=== PATIENT | female | born 1940 | race Caucasian/White ===

== ENCOUNTER 2017-05-10 10:47 | Inpatient (IN) ==
[2017-05-10] MEDS ORDERED: 0.9 % Sodium Chloride 1,000 ML IVC ONE (10:52)
[2017-05-10] MEDS ORDERED: Ondansetron 4 MG/2 ML VIAL IVP ONE (10:52)
--- NOTE | 2017-05-10 10:58 | Emergency Department Note ---
Disposition Clinical Impression: Hyponatremia, UTI (urinary tract infection) Disposition: Admitted As Inpatient Condition: Fair Referrals: Dayton Cunningham DO [Primary Care Provider] - General Adult HPI - General Stated complaint: Abnormal labs Time Seen by Provider: 05/10/17 10:52 Nursing Notes Reviewed: Yes Vital Signs Reviewed: Yes - Related Data Home Medications Medication Instructions Recorded Confirmed Fluticasone Propionate Nasal 2 spray NS QAM 10/06/14 05/10/17 [Flonase] Sertraline HCl [Zoloft] 12.5 mg PO QAM 10/06/14 05/10/17 Pantoprazole Sodium [Protonix] 40 mg PO QAM 12/14/14 05/10/17 Furosemide [Lasix] 20 mg PO DAILY 02/23/16 05/10/17 carBAMazepine [CarBAMazepine] 15 ml PO BID 02/24/16 05/10/17 Aspirin [Lo-Dose Aspirin EC] 81 mg PO DAILY 05/10/17 05/10/17 Cholecalciferol (D-3) [Vitamin D] 1,000 unit PO BID 05/10/17 05/10/17 Previous Rx's Medication Instructions Recorded LevETIRAcetam [Keppra] 7.5 ml PO Q12H #500 ml 02/27/16 Allergies Allergy/AdvReac Type Severity Reaction Status Date / Time Iodinated Contrast- Oral and Allergy Severe Hypotension Verified 02/24/16 12:26 IV Dye dexamethasone AdvReac Mild Itching Verified 02/24/16 12:26 nitrofurantoin AdvReac Mild Itching Verified 02/24/16 12:26 Sulfa (Sulfonamide AdvReac Mild Itching Verified 02/24/16 12:26 Antibiotics) tobramycin AdvReac Mild Itching Verified 02/24/16 12:26 clarithromycin AdvReac Unknown Itching Verified 02/24/16 12:26 Past Medical History - Past Medical History Medical history: Reports: arthritis, atrial fibrillation, cancer, CHF, COPD, coronary artery disease, CVA, dementia, dialysis (History of temporary dialysis following episode of severe, acute kidney injury.), GERD, GI bleed, hyperlipidemia, hypertension, malignancy, myocardial infarction, osteoporosis, renal disease, seizures, SVT, thyroid disease, syncope, TIA, other Surgical history: Reports: angioplasty/stent, breast surgery, cancer surgery, pacemaker/AICD, thyroidectomy, other (Diagnostic hysteroscopy. D&C. Left heart catheterization. History of PEG tube placement and reversal. History of tracheostomy and reversal.), AICD, pacemaker Psychiatric history: Reports: anxiety, depression, other PLUMBING ASSEMBLER INSTALLER history: Reports: no PLUMBING ASSEMBLER INSTALLER history, non-contributory - Social History Smoking Status: Never smoker Smokeless Tobacco Status: No Alcohol use: Reports: none Drug use: Reports: none Course Vital Signs Temperature 97 F L 05/10/17 10:49 Pulse Rate 71 05/10/17 10:49 Respiratory Rate 18 05/10/17 10:49 Blood Pressure 138/78 05/10/17 10:49 O2 Sat by Pulse Oximetry 95 05/10/17 10:49 Temperature 97 F L 05/10/17 10:49 Pulse Rate 68 05/10/17 13:51 Respiratory Rate 16 05/10/17 13:51 Blood Pressure 149/89 05/10/17 13:51 O2 Sat by Pulse Oximetry 98 05/10/17 13:51 Oxygen Delivery Oxygen Delivery Room Air Medical Decision Making - MDM Narrative Medical decision making narrative: This documentation is done with the assistance of Dragon dictation. Despite efforts made to ensure accuracy, there may be inaccuracies in fourth officer or spelling and typographical errors. I examined this patient and my medical decision-making was reviewed with the Resident Physician. I agree with the documented findings, disposition and treatment plan as described except to the extent set forth below. Patient seen and evaluated on arrival with EMS by myself and Dr. Wynne, I agree with her evaluation management plan, supervise care the patient's stay. Patient's had a history of dementia is taking care of at home. Said some vomiting today. Patient had labs drawn yesterday and by her DrSamanthaand they called today to report a sodium was very low. We will try to look that up. She does have vomiting here. She is not verbally responsive which is apparently her baseline. No bedsores. Will order labs, workup, try to control her nausea and then reassess. She will most likely need admission. 1128 hrs.: Reviewed patient's old records. Her sodium was 128. Her sodium was also low last month, and is uncertain whether she had any therapies done at that time. Family is here and state this is her normal baseline. patient services coordinator speaking with them to see if they need any resources at home. We will continue workup. Improbable admission. Family is in agreement with plan. 1242 hrs.: Spoke with family and they are agree with her coming into the hospital they want her to remain a full code. So we will speak with hospitalist bring her into the hospital and family is in agreement with this plan. - Lab Data Result diagrams: 05/10/17 10:53 05/10/17 13:39 Lab Results 05/10/17 05/10/17 05/10/17 Range/Units 10:53 10:53 11:12 WBC 8.3 (4.3-11.1) K/mcL RBC 4.97 (3.82-4.97) M/mcL Hgb 15.3 (11.5-15.4) g/dL Hct 43.2 (35.3-44.9) % MCV 86.9 (83.0-100.0) fL MCH 30.8 (28.0-33.3) pg MCHC 35.4 (31.6-35.5) g/dL RDW 13.2 (11.5-14.5) % Plt Count 160 (140-400) K/mcL MPV 10.9 (9.4-12.4) fL Immature Gran % 1.7 (0-4) % Seg Neutrophils % 73.4 % Lymphocytes % 13.3 % Monocytes % 10.0 % Eosinophils % 1.1 % Basophils % 0.5 % Neutrophils # 6.1 (1.6-8.9) K/mcL Lymphocytes # 1.1 (0.6-4.6) K/mcL Monocytes # 0.8 (0.0-1.3) K/mcL Eosinophils # 0.1 (0.0-0.6) K/mcL Basophils # 0.0 (0.0-0.2) K/mcL Sodium 120 L* (136-145) mEq/L Potassium 4.4 (3.5-5.1) mEq/L Chloride 83 L (98-107) mEq/L Carbon Dioxide 27 (23-29) mEq/L BUN 11 (8-23) mg/dL Creatinine 0.72 (0.60-1.20) mg/dL Est GFR ( Amer) > 60 (> 60) Est GFR (Non-Af Amer) > 60 (> 60) BUN/Creatinine Ratio 15 (6-26) Glucose 101 (70-105) mg/dL Calculated Osmolality 250 L (280-300) Lactic Acid 1.6 (0.5-2.2) mmol/L Calcium 9.6 (8.6-10.3) mg/dL Total Bilirubin 0.5 (0.3-1.0) mg/dL AST 24 (13-39) Units/L ALT 20 (7-52) Units/L Alkaline Phosphatase 101 (34-104) Units/L Troponin I < 0.03 (< 0.04) ng/mL Serum Total Protein 7.0 (6.4-8.9) g/dL Albumin 4.5 (3.5-5.7) g/dL Globulin 2.5 (2.4-3.5) g/dL Albumin/Globulin Ratio 1.8 (1.1-2.2) Urine Color (Yellow) Urine Clarity (Clear) Urine pH (5.0-8.0) pH Units Ur Specific [place] (1.010-1.025) Urine Protein (Neg-Trace) mg/dL Urine Glucose (UA) (Normal) mg/dL Urine Ketones (Negative) mg/dL Urine Blood (Negative) Urine Nitrite (Negative) Urine Bilirubin (Negative) Urine Urobilinogen (Normal) mg/dL Ur Leukocyte Esterase (Negative) Urine Microscopic RBC (0-3) per hpf Urine Microscopic WBC (0-3) per hpf Ur Squamous Epith Cells (None-Few) per lpf Amorphous Sediment (Few) Urine Bacteria (None-Few) per hpf Hyaline Casts (None-Few) per lpf Ur Culture Indicated? (NO) Carbamazepine (4.0-12.0) mcg/mL 05/10/17 05/10/17 05/10/17 Range/Units 11:12 11:14 13:39 WBC (4.3-11.1) K/mcL RBC (3.82-4.97) M/mcL Hgb (11.5-15.4) g/dL Hct (35.3-44.9) % MCV (83.0-100.0) fL MCH (28.0-33.3) pg MCHC (31.6-35.5) g/dL RDW (11.5-14.5) % Plt Count (140-400) K/mcL MPV (9.4-12.4) fL Immature Gran % (0-4) % Seg Neutrophils % % Lymphocytes % % Monocytes % % Eosinophils % % Basophils % % Neutrophils # (1.6-8.9) K/mcL Lymphocytes # (0.6-4.6) K/mcL Monocytes # (0.0-1.3) K/mcL Eosinophils # (0.0-0.6) K/mcL Basophils # (0.0-0.2) K/mcL Sodium 122 L (136-145) mEq/L Potassium (3.5-5.1) mEq/L Chloride (98-107) mEq/L Carbon Dioxide (23-29) mEq/L BUN (8-23) mg/dL Creatinine (0.60-1.20) mg/dL Est GFR ( Amer) (> 60) Est GFR (Non-Af Amer) (> 60) BUN/Creatinine Ratio (6-26) Glucose (70-105) mg/dL Calculated Osmolality (280-300) Lactic Acid (0.5-2.2) mmol/L Calcium (8.6-10.3) mg/dL Total Bilirubin (0.3-1.0) mg/dL AST (13-39) Units/L ALT (7-52) Units/L Alkaline Phosphatase (34-104) Units/L Troponin I (< 0.04) ng/mL Serum Total Protein (6.4-8.9) g/dL Albumin (3.5-5.7) g/dL Globulin (2.4-3.5) g/dL Albumin/Globulin Ratio (1.1-2.2) Urine Color Yellow (Yellow) Urine Clarity Cloudy A (Clear) Urine pH 7.0 (5.0-8.0) pH Units Ur Specific [place] 1.014 (1.010-1.025) Urine Protein Negative (Neg-Trace) mg/dL Urine Glucose (UA) Normal (Normal) mg/dL Urine Ketones Negative (Negative) mg/dL Urine Blood Negative (Negative) Urine Nitrite Negative (Negative) Urine Bilirubin Negative (Negative) Urine Urobilinogen Normal (Normal) mg/dL Ur Leukocyte Esterase Moderate H (Negative) Urine Microscopic RBC 0-3 (0-3) per hpf Urine Microscopic WBC 5-15 H (0-3) per hpf Ur Squamous Epith Cells Moderate H (None-Few) per lpf Amorphous Sediment Moderate H (Few) Urine Bacteria Many H (None-Few) per hpf Hyaline Casts None Seen (None-Few) per lpf Ur Culture Indicated? YES A (NO) Carbamazepine 10.3 (4.0-12.0) mcg/mL
--- NOTE | 2017-05-10 11:09 | Emergency Department Note ---
Disposition Clinical Impression: Hyponatremia UTI (urinary tract infection) Qualifiers: Urinary tract infection type: site unspecified Hematuria presence: without hematuria Qualified Code(s): N39.0 - Urinary tract infection, site not specified Disposition: Admitted As Inpatient Condition: Fair Referrals: Dayton Cunningham DO [Primary Care Provider] - Time of Disposition: 13:40 General Adult HPI - General Stated complaint: Abnormal labs Time Seen by Provider: 05/10/17 10:52 Source: EMS Mode of arrival: EMS Limitations: altered mental status Nursing Notes Reviewed: Yes Vital Signs Reviewed: Yes - History of Present Illness HPI Narrative: Patient is a 77-year-old female who presents to [facility] ED with a chief complaint of low sodium level. The patient has a history of dementia and according to EMS, she is at her baseline mental status. Patient had persistent nausea with vomiting for her transport here. States she was being treated for a urinary tract infection with Bactrim. Patient is coming from home and is cared for by family members and home health. Patient had her lab work drawn yesterday evening and was called today with a critical low sodium. Per , patient is ambulatory with a lot of assistance. She is able to converse without difficulty. Onset (ago): unknown Improves with: nothing Worsens with: nothing Associated symptoms: Reports: nausea/vomiting. Denies: cough, fever/chills, shortness of breath Treatments Prior to Arrival: none - Related Data Home Medications Medication Instructions Recorded Confirmed Fluticasone Propionate Nasal 2 spray NS QA 10/06/14 05/10/17 [Flonase] Sertraline HCl [Zoloft] 12.5 mg PO QAM 10/06/14 05/10/17 Pantoprazole Sodium [Protonix] 40 mg PO QAM 12/14/14 05/10/17 Furosemide [Lasix] 20 mg PO DAILY 02/23/16 05/10/17 carBAMazepine [CarBAMazepine] 15 ml PO BID 02/24/16 05/10/17 Aspirin [Lo-Dose Aspirin EC] 81 mg PO DAILY 05/10/17 05/10/17 Cholecalciferol (D-3) [Vitamin D] 1,000 unit PO BID 05/10/17 05/10/17 Previous Rx's Medication Instructions Recorded LevETIRAcetam [Keppra] 7.5 ml PO Q12H #500 ml 02/27/16 Allergies Allergy/AdvReac Type Severity Reaction Status Date / Time Iodinated Contrast- Oral and Allergy Severe Hypotension Verified 02/24/16 12:26 IV Dye dexamethasone AdvReac Mild Itching Verified 02/24/16 12:26 nitrofurantoin AdvReac Mild Itching Verified 02/24/16 12:26 Sulfa (Sulfonamide AdvReac Mild Itching Verified 02/24/16 12:26 Antibiotics) tobramycin AdvReac Mild Itching Verified 02/24/16 12:26 clarithromycin AdvReac Unknown Itching Verified 02/24/16 12:26 All systems ED: reviewed and negative except as stated. Past Medical History - Past Medical History Attestation: Yes The following information was validated with the patient. Source: patient Medical history: Reports: arthritis, atrial fibrillation, cancer, CHF, COPD, coronary artery disease, CVA, dementia, dialysis (History of temporary dialysis following episode of severe, acute kidney injury.), GERD, GI bleed, hyperlipidemia, hypertension, malignancy, myocardial infarction, osteoporosis, renal disease, seizures, SVT, thyroid disease, syncope, TIA, other Surgical history: Reports: angioplasty/stent, breast surgery, cancer surgery, pacemaker/AICD, thyroidectomy, other (Diagnostic hysteroscopy. D&C. Left heart catheterization. History of PEG tube placement and reversal. History of tracheostomy and reversal.), AICD, pacemaker Psychiatric history: Reports: anxiety, depression, other SEAMLESS TUBE ROLLER history: Reports: no SEAMLESS TUBE ROLLER history, non-contributory - Social History Smoking Status: Never smoker Smokeless Tobacco Status: No Alcohol use: Reports: none Drug use: Reports: none Physical Exam - General Limitations: no limitations General appearance: obtunded - Head Head exam: atraumatic, normocephalic, normal inspection - Eye Eye exam: Present: normal appearance, PERRL, EOMI - ENT ENT exam: normal exam, normal oropharynx, mucous membranes moist - Neck Neck exam: Present: normal inspection, full ROM, trachea midline - Chest Chest inspection: Present: normal inspection, symmetric chest wall rise - Respiratory Respiratory exam: Present: normal lung sounds bilaterally - Cardiovascular Cardiovascular exam: Present: regular rate, normal rhythm, normal heart sounds - Abdominal Exam Abdominal exam: Present: soft, Non-Tender. Absent: tenderness, distention, guarding, rebound, rigidity - Extremities Exam Extremities exam: Present: normal inspection, full ROM. Absent: tenderness, pedal edema - Back Exam Back exam: Present: normal inspection, full ROM. Absent: tenderness - Neurological Exam Neurological exam: Present: alert - Psychiatric Psychiatric exam: Present: normal affect, normal mood - Skin Skin exam: Present: warm, dry, intact, normal color Course Course Narrative: Patient seen and examined. Patient with low sodium as well as nausea and vomiting. Patient is at baseline demented. Critical care workup initiated. No signs of fall or head trauma. denies any recent falls at home. - Reevaluation(s) Reevaluation #1: Lab work shows sodium level of 120. Otherwise unremarkable. We will start maintenance IV fluids at 100 mL per hour. We will admit for hyponatremia and urinary tract infection. 2 g of Rocephin ordered. Discussed with hospitalist who has accepted patient for admission. Time: 13:39 Vital Signs Temperature 97 F L 05/10/17 10:49 Pulse Rate 71 05/10/17 10:49 Respiratory Rate 18 05/10/17 10:49 Blood Pressure 138/78 05/10/17 10:49 O2 Sat by Pulse Oximetry 95 05/10/17 10:49 Temperature 97 F L 05/10/17 10:49 Pulse Rate 63 05/10/17 12:03 Respiratory Rate 15 05/10/17 12:03 Blood Pressure 138/78 05/10/17 12:03 O2 Sat by Pulse Oximetry 98 05/10/17 12:03 Oxygen Delivery Oxygen Delivery Room Air Medical Decision Making - Medical Records Medical records reviewed: Yes I reviewed the patient's medical records. - Lab Data Lab results reviewed: Yes I reviewed the patient's lab results. Result diagrams: 05/10/17 10:53 05/10/17 10:53 Lab Results 05/10/17 05/10/17 05/10/17 Range/Units 10:53 10:53 11:12 WBC 8.3 (4.3-11.1) K/mcL RBC 4.97 (3.82-4.97) M/mcL Hgb 15.3 (11.5-15.4) g/dL Hct 43.2 (35.3-44.9) % MCV 86.9 (83.0-100.0) fL MCH 30.8 (28.0-33.3) pg MCHC 35.4 (31.6-35.5) g/dL RDW 13.2 (11.5-14.5) % Plt Count 160 (140-400) K/mcL MPV 10.9 (9.4-12.4) fL Immature Gran % 1.7 (0-4) % Seg Neutrophils % 73.4 % Lymphocytes % 13.3 % Monocytes % 10.0 % Eosinophils % 1.1 % Basophils % 0.5 % Neutrophils # 6.1 (1.6-8.9) K/mcL Lymphocytes # 1.1 (0.6-4.6) K/mcL Monocytes # 0.8 (0.0-1.3) K/mcL Eosinophils # 0.1 (0.0-0.6) K/mcL Basophils # 0.0 (0.0-0.2) K/mcL Sodium 120 L* (136-145) mEq/L Potassium 4.4 (3.5-5.1) mEq/L Chloride 83 L (98-107) mEq/L Carbon Dioxide 27 (23-29) mEq/L BUN 11 (8-23) mg/dL Creatinine 0.72 (0.60-1.20) mg/dL Est GFR ( Amer) > 60 (> 60) Est GFR (Non-Af Amer) > 60 (> 60) BUN/Creatinine Ratio 15 (6-26) Glucose 101 (70-105) mg/dL Calculated Osmolality 250 L (280-300) Lactic Acid 1.6 (0.5-2.2) mmol/L Calcium 9.6 (8.6-10.3) mg/dL Total Bilirubin 0.5 (0.3-1.0) mg/dL AST 24 (13-39) Units/L ALT 20 (7-52) Units/L Alkaline Phosphatase 101 (34-104) Units/L Troponin I < 0.03 (< 0.04) ng/mL Serum Total Protein 7.0 (6.4-8.9) g/dL Albumin 4.5 (3.5-5.7) g/dL Globulin 2.5 (2.4-3.5) g/dL Albumin/Globulin Ratio 1.8 (1.1-2.2) Urine Color (Yellow) Urine Clarity (Clear) Urine pH (5.0-8.0) pH Units Ur Specific [place] (1.010-1.025) Urine Protein (Neg-Trace) mg/dL Urine Glucose (UA) (Normal) mg/dL Urine Ketones (Negative) mg/dL Urine Blood (Negative) Urine Nitrite (Negative) Urine Bilirubin (Negative) Urine Urobilinogen (Normal) mg/dL Ur Leukocyte Esterase (Negative) Urine Microscopic RBC (0-3) per hpf Urine Microscopic WBC (0-3) per hpf Ur Squamous Epith Cells (None-Few) per lpf Amorphous Sediment (Few) Urine Bacteria (None-Few) per hpf Hyaline Casts (None-Few) per lpf Ur Culture Indicated? (NO) Carbamazepine (4.0-12.0) mcg/mL 05/10/17 05/10/17 Range/Units 11:12 11:14 WBC (4.3-11.1) K/mcL RBC (3.82-4.97) M/mcL Hgb (11.5-15.4) g/dL Hct (35.3-44.9) % MCV (83.0-100.0) fL MCH (28.0-33.3) pg MCHC (31.6-35.5) g/dL RDW (11.5-14.5) % Plt Count (140-400) K/mcL MPV (9.4-12.4) fL Immature Gran % (0-4) % Seg Neutrophils % % Lymphocytes % % Monocytes % % Eosinophils % % Basophils % % Neutrophils # (1.6-8.9) K/mcL Lymphocytes # (0.6-4.6) K/mcL Monocytes # (0.0-1.3) K/mcL Eosinophils # (0.0-0.6) K/mcL Basophils # (0.0-0.2) K/mcL Sodium (136-145) mEq/L Potassium (3.5-5.1) mEq/L Chloride (98-107) mEq/L Carbon Dioxide (23-29) mEq/L BUN (8-23) mg/dL Creatinine (0.60-1.20) mg/dL Est GFR ( Amer) (> 60) Est GFR (Non-Af Amer) (> 60) BUN/Creatinine Ratio (6-26) Glucose (70-105) mg/dL Calculated Osmolality (280-300) Lactic Acid (0.5-2.2) mmol/L Calcium (8.6-10.3) mg/dL Total Bilirubin (0.3-1.0) mg/dL AST (13-39) Units/L ALT (7-52) Units/L Alkaline Phosphatase (34-104) Units/L Troponin I (< 0.04) ng/mL Serum Total Protein (6.4-8.9) g/dL Albumin (3.5-5.7) g/dL Globulin (2.4-3.5) g/dL Albumin/Globulin Ratio (1.1-2.2) Urine Color Yellow (Yellow) Urine Clarity Cloudy A (Clear) Urine pH 7.0 (5.0-8.0) pH Units Ur Specific [place] 1.014 (1.010-1.025) Urine Protein Negative (Neg-Trace) mg/dL Urine Glucose (UA) Normal (Normal) mg/dL Urine Ketones Negative (Negative) mg/dL Urine Blood Negative (Negative) Urine Nitrite Negative (Negative) Urine Bilirubin Negative (Negative) Urine Urobilinogen Normal (Normal) mg/dL Ur Leukocyte Esterase Moderate H (Negative) Urine Microscopic RBC 0-3 (0-3) per hpf Urine Microscopic WBC 5-15 H (0-3) per hpf Ur Squamous Epith Cells Moderate H (None-Few) per lpf Amorphous Sediment Moderate H (Few) Urine Bacteria Many H (None-Few) per hpf Hyaline Casts None Seen (None-Few) per lpf Ur Culture Indicated? YES A (NO) Carbamazepine 10.3 (4.0-12.0) mcg/mL - EKG Data EKG #1 EKG attestation: Yes I reviewed and interpreted this EKG. EKG results narrative: EKG done at 1119 shows normal sinus rhythm with a rate of [address] elevation or depression. Inverted T waves in leads 1 and aVL. Unchanged from prior EKG done 02/23/2016.
[2017-05-10 11:23] LABS: Bilirubin,Urine Negative (Negative); Blood,Urine Negative (Negative); Clarity,Urine Cloudy (Clear); Color,Urine Yellow (Yellow); Glucose,Urine (UA) Normal (Normal); Ketones,Urine Negative (Negative); Leukocyte Esterase,Urine Moderate (Negative); Nitrite,Urine Negative (Negative); Protein,Urine Negative (Neg-Trace); Specific Gravity,Urine 1.014 (1.010-1.025); Urobilinogen,Urine Normal (Normal)
[2017-05-10 11:24] LABS: Bacteria,Urine Many per hpf (None-Few); Hyaline Casts,Urine None Seen per lpf (None-Few); Squamous Epithelial Cell,Urine Moderate per lpf (None-Few)
[2017-05-10 11:29] LABS: Basophils % 0.5 %; Eosinophils # 0.1 K/mcL (0.0-0.6); Eosinophils % 1.1 %; Hematocrit 43.2 % (35.3-44.9); Hemoglobin 15.3 g/dL (11.5-15.4); Immature Granulocytes % 1.7 % (0-4); Lymphocytes # 1.1 K/mcL (0.6-4.6); Lymphocytes % 13.3 %; Mean Corpuscular HGB Conc 35.4 g/dL (31.6-35.5); Mean Corpuscular Hemoglobin 30.8 pg (28.0-33.3); Mean Corpuscular Volume 86.9 fL (83.0-100.0); Mean Platelet Volume 10.9 fL (9.4-12.4); Monocytes # 0.8 K/mcL (0.0-1.3); Neutrophils # 6.1 K/mcL (1.6-8.9); Platelet Count 160 K/mcL (140-400); Red Blood Count 4.97 M/mcL (3.82-4.97); Red Cell Distribution Width 13.2 % (11.5-14.5); Segmented Neutrophils % 73.4 %
[2017-05-10 11:42] LABS: RBC,Urine 0-3 per hpf (0-3)
[2017-05-10 11:44] LABS: Amorphous Sediment,Urine Moderate (Few)
[2017-05-10 11:46] LABS: Troponin I < 0.03 ng/mL (< 0.04)
[2017-05-10 11:50] LABS: Sodium 120 mEq/L (136-145)
[2017-05-10 12:04] LABS: Alanine Aminotransferase 20 Units/L (7-52); Albumin 4.5 g/dL (3.5-5.7); Albumin/Globulin Ratio 1.8 (1.1-2.2); Alkaline Phosphatase 101 Units/L (34-104); Aspartate Amino Transferase 24 Units/L (13-39); BUN/Creatinine Ratio 15 (6-26); Bilirubin,Total 0.5 mg/dL (0.3-1.0); Blood Urea Nitrogen 11 mg/dL (8-23); Calcium 9.6 mg/dL (8.6-10.3); Carbon Dioxide 27 mEq/L (23-29); Chloride 83 mEq/L (98-107); Globulin 2.5 g/dL (2.4-3.5); Glucose 101 mg/dL (70-105); Osmolality,Calculated 250 (280-300); Potassium 4.4 mEq/L (3.5-5.1); eGFR For African Americans > 60 (> 60); eGFR For Non-African Americans > 60 (> 60)
[2017-05-10] MEDS ORDERED: cefTRIAXone 2,000 MG in Water for inj. (sterile) 20 ML 20 ML IVP ONE (12:36)
[2017-05-10] MEDS ORDERED: 0.9 % Sodium Chloride 1,000 ML IVC SCH (13:15)
[2017-05-10] MEDS ORDERED: *HR* OxyCODONE Immed Rel 5 MG TABLET PO PRN (13:20)
[2017-05-10] MEDS ORDERED: Acetaminophen 325 MG TABLET PO PRN (13:20)
[2017-05-10] MEDS ORDERED: *HR* HYDROcodone/Acet 5/325 mg TABLET PO PRN (13:20)
[2017-05-10] MEDS ORDERED: Naloxone 0.4 MG/ML INJ IVP PRN (13:20)
[2017-05-10] MEDS ORDERED: levETIRAcetam 500 MG/5 ML UDC PO SCH (13:30)
--- NOTE | 2017-05-10 13:32 | Internal Med History&Physical ---
Date of Encounter: 05/10/17 Time of Encounter: 13:27 Assessment and Plan (1) Hyponatremia Current visit: Yes Status: Acute Acute metabolic encephalopathy likely exacerbated by hyponatremia and possible UTI Check urine sodium and urine osmolality, the patient does not appear dehydrated and most likely hyponatremia is due to increased fluid intake Carbamazepine can cause SIADH, consider ulnar medication to control seizures if it would be confirmed that carbamazepine will be the culprit *Fluid restriction, may adjust therapy accordingly after reviewing urine sodium and urine osmolality Check sodium every 4 hours, do not increase more than 0.5 mg once per hour or more than 8 tablets in 24 hours. Continue Rocephin, although the patient has history of ESBL in the remote past, consider switching antibiotic therapy if not improving, await final culture report Check chest x-ray Omeprazole for GI prophylaxis and subcutaneous heparin for DVT prophylaxis. The patient will be admitted as inpatient, expected to stay more than 2 midnights. Full code. Time spent on this admission 40 minutes (2) Acute metabolic encephalopathy Current visit: No Status: Acute (3) Seizure Current visit: No Status: Acute (4) Urinary tract infection Current visit: No Status: Acute Qualifiers: Urinary tract infection type: site unspecified Hematuria presence: without hematuria Qualified Code(s): N39.0 - Urinary tract infection, site not specified (5) CVA, old, cognitive deficits Current visit: No Status: Chronic Continue aspirin (6) Dementia Current visit: No Status: Chronic Qualifiers: Dementia type: unspecified type Dementia behavioral disturbance: without behavioral disturbance Qualified Code(s): F03.90 - Unspecified dementia without behavioral disturbance (7) Lung cancer Current visit: No Status: Chronic Qualifiers: Laterality: right Lung location: unspecified part of lung Qualified Code( s): C34.91 - Malignant neoplasm of unspecified part of right bronchus or lung (8) Sick sinus syndrome Current visit: No Status: Chronic (9) History of herpes encephalitis Current visit: No Status: Inactive Internal Medicine - H&P: HPI Chief complaint: AMS Admitted From: Emergency Dept History of present illness: Ms. Serrano is a 77 year old female with a past medical history of seizure disorders on, mirtazapine, C. difficile, UTI with ESBL, GI bleed, lung cancer in the breast mass, diastolic CHF, was brought by her family because yesterday she was told that her sodium was critically low at 120. The patient lives at home and has home health services, she has dementia and was recently treated for UTI with Bactrim. She took her last dose of Bactrim 4 days ago. Today the UA showed 15 white blood cells and many bacteria, she grew Escherichia coli with ESBL two years ago but the latest cultures have shown Proteus, Escherichia coli, Aerococcus. Na is 120 today. Her mentions that she has received lots of water and cranberry juice over the past few days to control the UTI. The patient does not appear dehydrated but she has not been acting normal. Is oriented in person at baseline. No fevers, no CXR has been done yet. Received rocephin at the ER. Past Med Surg Social Fam HX - Past Medical History Medical history: arthritis, atrial fibrillation (Paroxysmal A. fib on no anticoagulation due to prior GI bleed), cancer (Breast cancer and lung cancer), CHF (Diastolic), COPD (Not oxygen dependent), coronary artery disease, CVA, dementia, dialysis (History of temporary dialysis following episode of severe, acute kidney injury.), GERD, GI bleed, hyperlipidemia, hypertension, malignancy , myocardial infarction, osteoporosis, renal disease, seizures, SVT, thyroid disease, syncope, TIA, other (History of Escherichia coli ESBL, SVT, HSV encephalitis/meningitis, GI bleed) Psychiatric history: anxiety, depression, other - Past Surgical History Surgical History: angioplasty/stent, breast surgery, cancer surgery, pacemaker/ AICD, thyroidectomy, other (Diagnostic hysteroscopy. D&C. Left heart catheterization. History of PEG tube placement and reversal. History of tracheostomy and reversal.), AICD, pacemaker - Social History Smoking Status: Never smoker Smokeless Tobacco Status: No Alcohol use: none Drug use: none - Family History Mother Living Status: Hx Family Endocrine Disorder: Yes Father Living Status: Hx Family Cancer: Yes - Additional Family History Additional family history: Father with thyroid cancer, hypertension and heart disease, mother with diabetes and hypertension Internal Medicine - H&P: Meds Fluticasone Propionate Nasal [Flonase] 2 spray NS QAM 10/06/14 [History] Sertraline HCl [Zoloft] 12.5 mg PO QAM 10/06/14 [History] Pantoprazole Sodium [Protonix] 40 mg PO QAM 12/14/14 [History] Furosemide [Lasix] 20 mg PO DAILY 02/23/16 [History] carBAMazepine [CarBAMazepine] 15 ml PO BID 02/24/16 [History] LevETIRAcetam [Keppra] 7.5 ml PO Q12H #500 ml 02/27/16 [Rx] Aspirin [Lo-Dose Aspirin EC] 81 mg PO DAILY 05/10/17 [History] Cholecalciferol (D-3) [Vitamin D] 1,000 unit PO BID 05/10/17 [History] 3 Allergy/AdvReac Type Severity Reaction Status Date / Time Iodinated Contrast- Oral and Allergy Severe Hypotension Verified 02/24/16 12:26 IV Dye dexamethasone AdvReac Mild Itching Verified 02/24/16 12:26 nitrofurantoin AdvReac Mild Itching Verified 02/24/16 12:26 Sulfa (Sulfonamide AdvReac Mild Itching Verified 02/24/16 12:26 Antibiotics) tobramycin AdvReac Mild Itching Verified 02/24/16 12:26 clarithromycin AdvReac Unknown Itching Verified 02/24/16 12:26 All Systems PM: A 10-system review of systems was performed and is negative for pertinent findings except as documented above in the HPI. Review of systems: Unable to be completed due to the patient status - Constitutional Vitals: Temp Pulse Resp BP Pulse Ox 97 F L 63 15 138/78 98 05/10/17 10:49 05/10/17 12:03 05/10/17 12:03 05/10/17 12:03 05/10/17 12:03 General appearance: Present: A&O X 1 - Head Head exam: Present: atraumatic, normocephalic - Eye Eye exam: Present: PERRL, conjuntiva pink, sclera anicteric Pupils: Present: PERRL - Neck Neck exam general surgery: Present: supple, trachea midline. Absent: lymphadenopathy - Respiratory Respiratory exam: Present: CTAB. Absent: accessory muscle use, rales, rhonchi, wheezes - Cardiovascular Cardiovascular exam: Present: RRR, +S1, +S2. Absent: diastolic murmur, gallop, rubs, systolic murmur - GI/Abdominal GI/Abdominal exam: Present: normal bowel sounds, soft, no peritoneal signs. Absent: distended, tenderness - Extremities Exam Extremities exam: Present: warm, radial pulses palpable and symmetrical. Absent : calf tenderness, cyanotic, pedal edema - Neurological Exam Neurological exam: Present: CN II-XII intact, no focal deficits. Absent: oriented X3, pronater drift, facial droop, speech deficit - Skin Skin exam: Present: dry, intact Internal Med - H&P Results - Labs CBC & Chem 7: 05/10/17 10:53 05/10/17 10:53 Labs: Short CBC 05/10/17 Range/Units 10:53 WBC 8.3 (4.3-11.1) K/mcL Hgb 15.3 (11.5-15.4) g/dL Hct 43.2 (35.3-44.9) % Plt Count 160 (140-400) K/mcL Neutrophils # 6.1 (1.6-8.9) K/mcL BMP 05/10/17 10:53 Sodium 120 L* Potassium 4.4 Chloride 83 L Carbon Dioxide 27 BUN 11 Creatinine 0.72 Glucose 101 Calcium 9.6 Cardiac Enzymes 05/10/17 Range/Units 10:53 Troponin I < 0.03 (< 0.04) ng/mL Liver Function 05/10/17 Range/Units 10:53 Total Bilirubin 0.5 (0.3-1.0) mg/dL AST 24 (13-39) Units/L ALT 20 (7-52) Units/L Alkaline Phosphatase 101 (34-104) Units/L Albumin 4.5 (3.5-5.7) g/dL Urine 05/10/17 Range/Units 11:14 Urine Color Yellow (Yellow) Urine Clarity Cloudy A (Clear) Urine pH 7.0 (5.0-8.0) pH Units Ur Specific Agness 1.014 (1.010-1.025) Urine Protein Negative (Neg-Trace) mg/dL Urine Glucose (UA) Normal (Normal) mg/dL
--- NOTE | 2017-05-10 17:11 | Electrocardiograph Report ---
[facility] Test Date: 2017-05-10 Pat Name: Geeta Serrano Department: 103 Room: 2A31 Gender: F Line Tester: RINA : 1940 Requested By: Raman Lockett Order Number: [id number] Reading MD: Vadim Head MD Measurements Intervals Madelia Rate: 64 P: 60 VT: 177 QRS: -7 QRSD: 105 T: 121 QT: 404 QTc: 413 Interpretive Statements SINUS RHYTHM ST DEVIATION AND MODERATE T-WAVE ABNORMALITY, CONSIDER ANTEROLATERAL ISCHEMIA [- 0.1+ mV T WAVE IN V3-V6] INTERPRETATION BASED ON A DEFAULT AGE OF 40 YEARS Electronically Signed On 05-10-2017 17:10:11 EST by Vadim Head MD
[2017-05-10] MEDS: *HR* Heparin 5,000 UNIT/ML VIAL SQ SCH (17:34)
[2017-05-10] MEDS: levETIRAcetam 500 MG/5 ML UDC PO SCH (17:53)
[2017-05-11] MEDS: *HR* Heparin 5,000 UNIT/ML VIAL SQ SCH ×3 (00:13→18:18)
[2017-05-11] MEDS: levETIRAcetam 500 MG/5 ML UDC PO SCH ×2 (04:49→18:16)
[2017-05-11 05:14] LABS: Hematocrit 38.8 % (35.3-44.9); Mean Corpuscular HGB Conc 34.8 g/dL (31.6-35.5); Mean Corpuscular Hemoglobin 30.9 pg (28.0-33.3); Mean Corpuscular Volume 88.8 fL (83.0-100.0); Platelet Count 154 K/mcL (140-400); Red Blood Count 4.37 M/mcL (3.82-4.97); Red Cell Distribution Width 13.2 % (11.5-14.5)
[2017-05-11 05:16] LABS: Hemoglobin 13.5 g/dL (11.5-15.4)
[2017-05-11 05:31] LABS: BUN/Creatinine Ratio 12 (6-26); Blood Urea Nitrogen 9 mg/dL (8-23); Calcium 8.6 mg/dL (8.6-10.3); Carbon Dioxide 27 mEq/L (23-29); Chloride 96 mEq/L (98-107); Glucose 105 mg/dL (70-105); Osmolality,Calculated 267 (280-300); Potassium 4.1 mEq/L (3.5-5.1); Sodium 129 mEq/L (136-145); eGFR For African Americans > 60 (> 60); eGFR For Non-African Americans > 60 (> 60)
[2017-05-11] MEDS: cefTRIAXone 1,000 MG in Water for inj. (sterile) 20 ML 10 ML IVP SCH (08:57)
[2017-05-11] MEDS: Aspirin Enteric Coated 81 MG Tablet PO SCH (09:03)
--- NOTE | 2017-05-11 14:11 | Internal Med Progress Note ---
<Juan Bueno - Last Filed: 05/11/17 17:20> Date of Encounter: 05/11/17 Time of Encounter: 14:07 - Assessment and plan (1) Acute metabolic encephalopathy Current Visit: Yes Status: Acute Assessment and plan: Secondary to exacerbation by hyponatremia versus possibly UTI Consider discharge tomorrow pending urine culture (2) Hyponatremia Current Visit: Yes Status: Acute Assessment and plan: Urine sodium and urine osmolality suggests that the cause is either increase fluid intake or related to thyroid versus corticosteroid insufficiency. Current patient's , the patient was diagnosed with UTI and treated with Bactrim which was completed 4 days ago and she had home health aides have encouraged her to drink plenty of fluids and she may drink too much. Fluid restriction appears to be improving the patient's sodium. Most recent sodium was 129. Plan: - TSH ordered - Continue fluid restriction - Continue to monitor I's and O's (3) Urinary tract infection Current Visit: Yes Status: Acute Assessment and plan: Urine was indicative of possible UTI infection. Plan: - Day 2 of Rocephin - Cultures pending Qualifiers: Urinary tract infection type: site unspecified Hematuria presence: without hematuria Qualified Code(s): N39.0 - Urinary tract infection, site not specified (4) DVT prophylaxis Current Visit: No Status: Acute Assessment and plan: Heparin 5000 units SQ Q8H - Subjective Interval history: Patient is a 77-year-old female with a past medical history of A. fib, CHF, COPD , CAD, CVA, MEGAN requiring dialysis, UTI with ESBL, seizures, SVT, dementia and AICD admitted yesterday through the emergency department for urinary tract infection and hyponatremia. CBC was unremarkable patients metabolic panel showed a sodium of 128, kidney function was normal and UA showed positive leukocyte Estrace with many bacteria and moderate squamous epithelial cells. The patient came from the home in which she lives with her family and is seen by home health. She did have nausea and vomiting on her transport here and she was being treated with Bactrim for UTI prior to arrival. Started on Rocephin in the ED. - Constitutional Vitals: Temp Pulse Resp BP Pulse Ox 98.2 F 75 16 122/75 94 05/11/17 11:55 05/11/17 11:55 05/11/17 11:55 05/11/17 11:55 05/11/17 11:55 General appearance: Present: A&O X 1, A&O X 2, pleasant, no acute distress Exam: Patient is sent over and resting in bed. She is easily arousable. Upon waking up the patient answers my questions appropriately. - Head Head exam: Present: atraumatic, normal inspection, normocephalic - Eye Eye exam: Present: normal appearance, PERRL - Neck Neck exam general surgery: Present: normal inspection - Respiratory Respiratory exam: Present: CTAB. Absent: respiratory distress, rhonchi, stridor , wheezes - Cardiovascular Cardiovascular exam: Present: RRR, +S1, +S2 - GI/Abdominal GI/Abdominal exam: Present: normal bowel sounds, soft, no peritoneal signs. Absent: tenderness - Extremities Exam Extremities exam: Present: normal inspection, warm. Absent: tenderness - Back Exam Back exam: Present: normal inspection - Neurological Exam Neurological exam: Present: alert, no focal deficits - Psychiatric Psychiatric exam: Present: normal affect, normal mood - Skin Skin exam: Present: intact, rash, warm Internal Medicine: Result - Labs CBC & Chem 7: 05/11/17 04:00 05/11/17 04:00 Labs: Short CBC 05/11/17 Range/Units 04:00 WBC 9.2 (4.3-11.1) K/mcL Hgb 13.5 D (11.5-15.4) g/dL Hct 38.8 (35.3-44.9) % Plt Count 154 (140-400) K/mcL BMP 05/10/17 05/10/17 05/11/17 17:03 21:16 01:16 Sodium 129 L 128 L 128 L Potassium Chloride Carbon Dioxide BUN Creatinine Glucose Calcium 05/11/17 04:00 Sodium 129 L Potassium 4.1 Chloride 96 L Carbon Dioxide 27 BUN 9 Creatinine 0.77 Glucose 105 Calcium 8.6 Consult Discharge Plan - Plan Referrals: Dayton Cunningham DO [Primary Care Provider] - <Jaylen Mojica - Last Filed: 05/11/17 17:39> Date of Encounter: 05/11/17 - Constitutional Vitals: Temp Pulse Resp BP Pulse Ox 98.8 F 70 20 144/77 94 05/11/17 15:57 05/11/17 15:57 05/11/17 15:57 05/11/17 15:57 05/11/17 15:57 Internal Medicine: Result - Labs CBC & Chem 7: 05/11/17 04:00 05/11/17 04:00 Labs: Short CBC 05/11/17 Range/Units 04:00 WBC 9.2 (4.3-11.1) K/mcL Hgb 13.5 D (11.5-15.4) g/dL Hct 38.8 (35.3-44.9) % Plt Count 154 (140-400) K/mcL BMP 05/10/17 05/10/17 05/11/17 17:03 21:16 01:16 Sodium 129 L 128 L 128 L Potassium Chloride Carbon Dioxide BUN Creatinine Glucose Calcium 05/11/17 04:00 Sodium 129 L Potassium 4.1 Chloride 96 L Carbon Dioxide 27 BUN 9 Creatinine 0.77 Glucose 105 Calcium 8.6 - Attending Attestation I examined this patient and my medical decision-making was reviewed with the Resident Physician. I agree with the documented findings, disposition and treatment plan as described except to the extent set forth below.
[2017-05-12] MEDS: *HR* Heparin 5,000 UNIT/ML VIAL SQ SCH ×2 (00:15→09:25)
[2017-05-12 04:45] LABS: BUN/Creatinine Ratio 14 (6-26); Blood Urea Nitrogen 11 mg/dL (8-23); Calcium 8.4 mg/dL (8.6-10.3); Carbon Dioxide 25 mEq/L (23-29); Chloride 97 mEq/L (98-107); Glucose 101 mg/dL (70-105); Osmolality,Calculated 270 (280-300); Potassium 3.7 mEq/L (3.5-5.1); Sodium 130 mEq/L (136-145); eGFR For African Americans > 60 (> 60); eGFR For Non-African Americans > 60 (> 60)
[2017-05-12] MEDS: levETIRAcetam 500 MG/5 ML UDC PO SCH (05:19)
--- NOTE | 2017-05-12 09:03 | Discharge Summary ---
<Juan Bueno - Last Filed: 05/12/17 10:39> - NOTES TO OUTPATIENT PROVIDER Notes to Outpatient Provider: Patient is to complete 4 additional days of Levaquin upon discharge which will complete a 7 day course. Cultures and sensitivities were performed and the antibiotic is adequate. Patient also cautioned on fluid restrictions. Date of Encounter: 05/12/17 Time of Encounter: 10:39 - Discharge Diagnosis (1) Urinary tract infection Priority: Primary Status: Acute Qualifiers: Urinary tract infection type: site unspecified Hematuria presence: without hematuria Qualified Code(s): N39.0 - Urinary tract infection, site not specified (2) Hyponatremia Priority: Primary Status: Acute (3) Acute metabolic encephalopathy Priority: Primary Status: Acute (4) DVT prophylaxis Priority: Secondary Status: Acute Hospital course: Ms. Serrano is a 77-year-old female with a past medical history of A. fib, CHF, COPD, CAD, CVA, MEGAN requiring dialysis, UTI with ESBL, seizures, SVT, dementia and AICD admitted on 05/10/17 through the emergency department for a critical lab value with sodium of 120 and also concerns for urinary tract infection. 4 days prior to admission the patient was being treated for a UTI outpatient which she received a full course of Bactrim. According to the patient's the patient has been more tired than usual and taking in more fluids than usual. Throughout her stay in the hospital the patient was placed on fluid restrictions and her sodium improved. She is also treated for 3 days worth of antibiotics for urinary tract infection. Her culture grew back Proteus mirabilis with sensitivities to the chosen antibiotics. The patient will be discharged home today with a prescription for 4 more days of Levaquin which is to be started tomorrow. This is to be taken until completion. The patient will need to follow up with her primary care physician Dr. Cunningham in 3-5 days. Discussed with patient and patient's be cautious with fluid intake. Discharge discussed with: patient Time spent discussing smoking cessation with patient: 3 to 10 minutes - Time Spent with Patient Total time spent providing and/or coordinating discharge services: - Discharge Medications Prescriptions: Levofloxacin [Levaquin] 750 mg PO DAILY 4 Days #4 tablet Home Medications: Fluticasone Propionate Nasal [Flonase] 2 spray NS QAM 10/06/14 [History] Sertraline HCl [Zoloft] 12.5 mg PO QAM 10/06/14 [History] Pantoprazole Sodium [Protonix] 40 mg PO QAM 12/14/14 [History] Furosemide [Lasix] 20 mg PO DAILY 02/23/16 [History] carBAMazepine [CarBAMazepine] 15 ml PO BID 02/24/16 [History] LevETIRAcetam [Keppra] 7.5 ml PO Q12H #500 ml 02/27/16 [Rx] Aspirin [Lo-Dose Aspirin EC] 81 mg PO DAILY 05/10/17 [History] Cholecalciferol (D-3) [Vitamin D] 1,000 unit PO BID 05/10/17 [History] Levofloxacin [Levaquin] 750 mg PO DAILY 4 Days #4 tablet 05/12/17 [Rx] Allergies/Adverse Reactions: 3 Allergy/AdvReac Type Severity Reaction Status Date / Time Iodinated Contrast- Oral and Allergy Severe Hypotension Verified 02/24/16 12:26 IV Dye dexamethasone AdvReac Mild Itching Verified 02/24/16 12:26 nitrofurantoin AdvReac Mild Itching Verified 02/24/16 12:26 Sulfa (Sulfonamide AdvReac Mild Itching Verified 02/24/16 12:26 Antibiotics) tobramycin AdvReac Mild Itching Verified 02/24/16 12:26 clarithromycin AdvReac Unknown Itching Verified 02/24/16 12:26 Date of admission: 05/10/17 16:28 Primary care physician: Dayton Cunningham DO Discharging clinician: Jaylen Mojica Anticipated date of discharge: 05/12/17 - Constitutional Vitals: Temp Pulse Resp BP Pulse Ox 98.5 F 71 13 109/73 94 05/12/17 08:46 05/12/17 08:46 05/12/17 08:46 05/12/17 08:46 05/12/17 08:46 General appearance: Present: A&O X 2, pleasant, no acute distress Exam: Patient is at baseline according to . He states she sleeps a few hours after morning medications and is most alert in the afternoon. - Head Head exam: Present: atraumatic, normal inspection, normocephalic - Eye Eye exam: Present: normal appearance, PERRL - Neck Neck exam general surgery: Present: normal inspection - Respiratory Respiratory exam: Present: CTAB. Absent: respiratory distress, rhonchi, wheezes , tachypnea - Cardiovascular Cardiovascular exam: Present: RRR, +S1, +S2 - GI/Abdominal GI/Abdominal exam: Present: normal bowel sounds, soft, no peritoneal signs. Absent: tenderness - Extremities Exam Extremities exam: Present: warm. Absent: tenderness - Back Exam Back exam: Present: normal inspection - Neurological Exam Neurological exam: Present: no focal deficits Additional comments: Patient is resting. She awakens for questions. - Psychiatric Psychiatric exam: Present: normal affect, normal mood - Skin Skin exam: Present: intact, normal color, warm - Patient Status Disposition: Home, Self-Care Condition: Fair Functional capacity at discharge: wheelchair bound Overall status at discharge: patient is progressing back to baseline - Discharge Instructions Follow Up With: Dayton Cunningham DO [Primary Care Provider] - Forms: ED Satisfaction Letter Additional Instructions: 1. Take your antibiotic as prescribed, Levaquin 750 mg 1 time a day for the next 4 days. 2. Call your primary care provider's office, Dr. Cunningham, and schedule appointment for the next 3-5 days. 3. If at any time you experience any worsening or concerning symptoms such as headache, nausea, vomiting, chest pain, shortness of breath, abdominal pain, burning with urination, change in the urgency or frequency of urination, or any other concerning symptoms return to the nearest emergency department for further evaluation and treatment. - Diet and Activity Activity: increase activity as tolerated Diet: advance to your usual diet <Jaylen Mojica - Last Filed: 05/12/17 18:33> Date of Encounter: 05/12/17 Hospital course: Ms. Serrano is a 77 year old female - Time Spent with Patient Total time spent providing and/or coordinating discharge services: Date of admission: 05/10/17 16:28 Primary care physician: Dayton Cunnignham DO - Constitutional Vitals: Temp Pulse Resp BP Pulse Ox 98.6 F 74 12 112/72 92 05/12/17 12:38 05/12/17 12:38 05/12/17 12:38 05/12/17 12:38 05/12/17 12:38 - Attending Attestation I examined this patient and my medical decision-making was reviewed with the Resident Physician. I agree with the documented findings, disposition and treatment plan as described except to the extent set forth below.
[2017-05-12] MEDS: cefTRIAXone 1,000 MG in Water for inj. (sterile) 20 ML 10 ML IVP SCH (09:26)
[2017-05-12] MEDS: Aspirin Enteric Coated 81 MG Tablet PO SCH (09:27)
[2017-05-12 12:59] VITALS: BP 112/72
--- NOTE | 2017-05-12 14:25 | Physician Discharge Referral ---
<Juan Bueno Golden - Last Filed: 05/12/17 14:23> Home Health/Hosp Referral Info Transfer to: Home Health Attending Provider: Simi Mojica Provider in Charge Post Discharge: PCP - Diagnosis (1) Urinary tract infection Priority: Primary Status: Acute (2) Hyponatremia Priority: Primary Status: Acute (3) Acute metabolic encephalopathy Priority: Primary Status: Acute (4) DVT prophylaxis Priority: Secondary Status: Acute - Respiratory Orders None Smoking Cessation: Smoking cessation has been advised. For more information, call the [place] [employer] Quit Line at 1-341-KBVF-NOW. - Diet/Nutrition Diet/Nutrition Orders: Cardiac - Activity Activity Orders: Up ad stefania, Chair - Services Needed Following services are medically necessary services: Nursing, Home Health Aide, Physical Therapy, Occupational Therapy - Transfer Medications Prescriptions: Levofloxacin [Levaquin] 750 mg PO DAILY 4 Days #4 tablet Home Medications: Fluticasone Propionate Nasal [Flonase] 2 spray NS QAM 10/06/14 [History] Sertraline HCl [Zoloft] 12.5 mg PO QAM 10/06/14 [History] Pantoprazole Sodium [Protonix] 40 mg PO QAM 12/14/14 [History] Furosemide [Lasix] 20 mg PO DAILY 02/23/16 [History] carBAMazepine [CarBAMazepine] 15 ml PO BID 02/24/16 [History] LevETIRAcetam [Keppra] 7.5 ml PO Q12H #500 ml 02/27/16 [Rx] Aspirin [Lo-Dose Aspirin EC] 81 mg PO DAILY 05/10/17 [History] Cholecalciferol (D-3) [Vitamin D] 1,000 unit PO BID 05/10/17 [History] Levofloxacin [Levaquin] 750 mg PO DAILY 4 Days #4 tablet 05/12/17 [Rx] Allergies/Adverse Reactions: 3 Allergy/AdvReac Type Severity Reaction Status Date / Time Iodinated Contrast- Oral and Allergy Severe Hypotension Verified 02/24/16 12:26 IV Dye dexamethasone AdvReac Mild Itching Verified 02/24/16 12:26 nitrofurantoin AdvReac Mild Itching Verified 02/24/16 12:26 Sulfa (Sulfonamide AdvReac Mild Itching Verified 02/24/16 12:26 Antibiotics) tobramycin AdvReac Mild Itching Verified 02/24/16 12:26 clarithromycin AdvReac Unknown Itching Verified 02/24/16 12:26 Certification: Further, I certify that my clinical findings support that this patient is homebound (i.e. absences from home require considerable and taxing effort and are for medical reasons or buddhism services or infrequently or short duration when for other reasons) because: Homebound Reason: Patient requires assistance of a person or device to safely leave home Attestation: My signature below is to certify that this patient is under my care and that I, or nurse practitioner, or a physician's assistant site manager working with me, has a face-to -face encounter with this patient. <Jaylen Mojica - Last Filed: 05/12/17 18:36> - Respiratory Orders Smoking Cessation: Smoking cessation has been advised. For more information, call the [place] [employer] Quit Line at 5-372-REDZ-NOW. Certification: Further, I certify that my clinical findings support that this patient is homebound (i.e. absences from home require considerable and taxing effort and are for medical reasons or buddhism services or infrequently or short duration when for other reasons) because: Attestation: My signature below is to certify that this patient is under my care and that I, or nurse practitioner, or a physician's assistant site manager working with me, has a face-to -face encounter with this patient. - Attending Attestation I examined this patient and my medical decision-making was reviewed with the Resident Physician. I agree with the documented findings, disposition and treatment plan as described except to the extent set forth below.
== END 2017-05-12 15:35 | disposition home or self-care (01) | DRG 426 ==
LOC: EMEROO 10:47 → 2ANU 10:47
PROVIDERS: ADMIT Internal Medicine; ATTEND Internal Medicine

== ENCOUNTER 2018-05-29 17:58 | Observation (INO) ==
--- NOTE | 2018-05-29 18:15 | Emergency Department Note ---
Disposition Clinical Impression: Elevated troponin UTI (urinary tract infection) Qualifiers: Urinary tract infection type: site unspecified Hematuria presence: without hematuria Qualified Code(s): N39.0 - Urinary tract infection, site not specified Altered mental status Qualifiers: Altered mental status type: unspecified Qualified Code(s): R41.82 - Altered mental status, unspecified Dementia Qualifiers: Dementia type: unspecified type Dementia behavioral disturbance: without behavioral disturbance Qualified Code(s): F03.90 - Unspecified dementia without behavioral disturbance Disposition: Admitted As Inpatient Condition: Fair Referrals: NONE,PCP [Primary Care Provider] - Time of Disposition: 22:06 General Adult HPI - General Stated complaint: General illness Source: EMS Mode of arrival: EMS Limitations: altered mental status Nursing Notes Reviewed: Yes Vital Signs Reviewed: Yes - History of Present Illness HPI Narrative: 78 yo female with PMHx of dementia is transported via EMS from home for "unresponsiveness." Pt's family states they could not wake her up and so they called EMS. They checked her blood sugar at home and reported to be 160, repeat blood sugar check. EMS was 1:15. The patient was awake and alert once EMS got there and has been awake and alert since then. Patient has severe dementia and is unable to answer any questions. - Related Data Home Medications Medication Instructions Recorded Confirmed Sertraline HCl [Zoloft] 12.5 mg PO QAM 10/06/14 11/13/17 Pantoprazole Sodium [Protonix] 40 mg PO QAM 12/14/14 11/13/17 Furosemide [Lasix] 20 mg PO DAILY 02/23/16 11/13/17 carBAMazepine [CarBAMazepine] 15 ml PO BID 02/24/16 11/13/17 Aspirin [Lo-Dose Aspirin EC] 81 mg PO DAILY 05/10/17 11/13/17 Cholecalciferol (D-3) [Vitamin D] 1,000 unit PO BID 05/10/17 11/13/17 Atorvastatin [Lipitor] 10 mg PO HS 05/29/18 05/29/18 Previous Rx's Medication Instructions Recorded LevETIRAcetam [Keppra] 7.5 ml PO Q12H #500 ml 02/27/16 Allergies Allergy/AdvReac Type Severity Reaction Status Date / Time Iodinated Contrast- Oral and Allergy Severe Hypotension Verified 11/13/17 15:08 IV Dye dexamethasone AdvReac Mild Itching Verified 11/13/17 15:08 nitrofurantoin AdvReac Mild Itching Verified 11/13/17 15:08 Sulfa (Sulfonamide AdvReac Mild Itching Verified 11/13/17 15:08 Antibiotics) tobramycin AdvReac Mild Itching Verified 11/13/17 15:08 clarithromycin AdvReac Unknown Itching Verified 11/13/17 15:08 Limitations: ROS unobtainable due to patients medical condition Past Medical History - Past Medical History Source: old records reviewed Medical history: Reports: arthritis, atrial fibrillation, cancer, CHF, COPD, coronary artery disease, CVA, dementia, dialysis, GERD, GI bleed, hyperlipidemia, hypertension, malignancy, myocardial infarction, osteoporosis, renal disease, seizures, SVT, thyroid disease, syncope, TIA, other Surgical history: Reports: angioplasty/stent, breast surgery, cancer surgery, pacemaker/AICD, thyroidectomy, other, AICD, pacemaker Psychiatric history: Reports: anxiety, depression, other AUTOMATION SPECIALIST history: Reports: no AUTOMATION SPECIALIST history, non-contributory - Social History Smoking Status: Never smoker Smokeless Tobacco Status: No Alcohol use: Reports: none Drug use: Reports: none Physical Exam - General Limitations: altered mental status General appearance: alert, in no apparent distress - Head Head exam: atraumatic, normocephalic - Eye Eye exam: Present: normal appearance, PERRL, EOMI - Neck Neck exam: Present: normal inspection. Absent: tenderness - Chest Chest inspection: Present: normal inspection. Absent: tenderness - Respiratory Respiratory exam: Present: normal lung sounds bilaterally - Cardiovascular Cardiovascular exam: Present: regular rate, normal rhythm - Abdominal Exam Abdominal exam: Present: soft, Non-Tender. Absent: distention, guarding, re bound, rigidity - Extremities Exam Extremities exam: Present: other (Area of ecchymosis on the patient's right ankle and top of foot with associated edema). Absent: tenderness - Neurological Exam Neurological exam: Present: alert. Absent: oriented X3 - Skin Skin exam: Present: warm, dry, intact Course Vital Signs Temperature 98.3 F 05/29/18 18:12 Pulse Rate 69 05/29/18 18:12 Respiratory Rate 16 05/29/18 18:12 Blood Pressure 162/75 05/29/18 18:12 O2 Sat by Pulse Oximetry 99 05/29/18 18:12 Temperature 98.3 F 05/29/18 18:12 Pulse Rate 69 05/29/18 18:12 Respiratory Rate 16 05/29/18 18:12 Blood Pressure 162/75 05/29/18 18:12 O2 Sat by Pulse Oximetry 99 05/29/18 18:12 Oxygen Delivery Oxygen Delivery Room Air Medical Decision Making - MDM Narrative Medical decision making narrative: Patient presents with altered mental status from home but has a baseline of dementia. We will obtain screening labs, urinalysis, head CT, chest x-ray, EKG and troponin to assess the patient's altered mental status. 194patient does have an elevation of troponin of 0.04 that is new. Patient also has signs of urinary tract infection on her urinalysis. Chest x-ray is unremarkable. Right foot x-ray shows signs of possible retained foreign body. Awaiting head CT. We will obtain a lactic acid and blood cultures, and start the patient on Rocephin for her urinary tract infection. We will admit the patient once these results returned. 2100 - head CT does not demonstrate any acute process. Lactic acid is within normal limits at 2.1. Hospitalist has been paged at this time. 2199 - Dr. Armstrong has accepted the patient for admission of this time. - Medical Records Medical records reviewed: Yes I reviewed the patient's medical records. - Lab Data Lab results reviewed: Yes I reviewed the patient's lab results. Result diagrams: 05/29/18 18:10 05/29/18 20:10 Lab Results 05/29/18 05/29/18 05/29/18 Range/Units 18:10 18:10 18:10 WBC 8.9 (4.3-11.1) K/mcL RBC 4.34 (3.82-4.97) M/mcL Hgb 14.0 (11.5-15.4) g/dL Hct 40.8 (35.3-44.9) % MCV 94.0 (83.0-100.0) fL MCH 32.3 (28.0-33.3) pg MCHC 34.3 (31.6-35.5) g/dL RDW 13.9 (11.5-14.5) % Plt Count 148 (140-400) K/mcL MPV 11.8 (9.4-12.4) fL Immature Gran % 0.6 (0-4) % Seg Neutrophils % 76.0 % Lymphocytes % 13.0 % Monocytes % 7.7 % Eosinophils % 2.4 % Basophils % 0.3 % Neutrophils # 6.8 (1.6-8.9) K/mcL Lymphocytes # 1.2 (0.6-4.6) K/mcL Monocytes # 0.7 (0.0-1.3) K/mcL Eosinophils # 0.2 (0.0-0.6) K/mcL Basophils # 0.0 (0.0-0.2) K/mcL Sodium Cancelled Potassium Cancelled Chloride Cancelled Carbon Dioxide Cancelled BUN Cancelled Creatinine Cancelled Est GFR ( Amer) Cancelled Est GFR (Non-Af Amer) Cancelled BUN/Creatinine Ratio Cancelled Glucose Cancelled Calculated Osmolality Cancelled Lactic Acid (0.5-2.2) mmol/L Calcium Cancelled Troponin I 0.04 H* (< 0.04) ng/mL Urine Color (Yellow) Urine Clarity (Clear) Urine pH (5.0-8.0) pH Units Ur Specific [place] (1.010-1.025) Urine Protein (Neg-Trace) mg/dL Urine Glucose (UA) (Normal) mg/dL Urine Ketones (Negative) mg/dL Urine Blood (Negative) Urine Nitrite (Negative) Urine Bilirubin (Negative) Urine Urobilinogen (Normal) mg/dL Ur Leukocyte Esterase (Negative) Urine Microscopic RBC (0-3) per hpf Urine Microscopic WBC (0-3) per hpf Ur Squamous Epith Cells (None-Few) per lpf Urine Bacteria (None-Few) per hpf Hyaline Casts (None-Few) per lpf Ur Culture Indicated? (NO) Specimen Rejected Hemolyzed 05/29/18 05/29/18 05/29/18 Range/Units 19:01 20:10 20:10 WBC (4.3-11.1) K/mcL RBC (3.82-4.97) M/mcL Hgb (11.5-15.4) g/dL Hct (35.3-44.9) % MCV (83.0-100.0) fL MCH (28.0-33.3) pg MCHC (31.6-35.5) g/dL RDW (11.5-14.5) % Plt Count (140-400) K/mcL MPV (9.4-12.4) fL Immature Gran % (0-4) % Seg Neutrophils % % Lymphocytes % % Monocytes % % Eosinophils % % Basophils % % Neutrophils # (1.6-8.9) K/mcL Lymphocytes # (0.6-4.6) K/mcL Monocytes # (0.0-1.3) K/mcL Eosinophils # (0.0-0.6) K/mcL Basophils # (0.0-0.2) K/mcL Sodium 138 Potassium 4.2 Chloride 99 Carbon Dioxide 31 H BUN 12 Creatinine 0.71 Est GFR ( Amer) > 60 Est GFR (Non-Af Amer) > 60 BUN/Creatinine Ratio 17 Glucose 105 Calculated Osmolality 286 Lactic Acid 2.1 (0.5-2.2) mmol/L Calcium 9.4 Troponin I (< 0.04) ng/mL Urine Color Dark Yellow (Yellow) Urine Clarity Turbid A (Clear) Urine pH 7.5 (5.0-8.0) pH Units Ur Specific [place] 1.016 (1.010-1.025) Urine Protein 30 H (Neg-Trace) mg/dL Urine Glucose (UA) Normal (Normal) mg/dL Urine Ketones Negative (Negative) mg/dL Urine Blood Negative (Negative) Urine Nitrite Positive A (Negative) Urine Bilirubin Negative (Negative) Urine Urobilinogen Normal (Normal) mg/dL Ur Leukocyte Esterase Large H (Negative) Urine Microscopic RBC 3-5 H (0-3) per hpf Urine Microscopic WBC TNTC H (0-3) per hpf Ur Squamous Epith Cells Many H (None-Few) per lpf Urine Bacteria Many H (None-Few) per hpf Hyaline Casts None Seen (None-Few) per lpf Ur Culture Indicated? NO. A (NO) Specimen Rejected - Radiology Data Radiology results reviewed: Yes I reviewed the patient's radiology results. - EKG Data EKG #1 EKG attestation: Yes I reviewed and interpreted this EKG. EKG results narrative: EKG obtained at 18:10 on 05/29/2018 Heart rate 68 bpm, VT interval 176, QRS duration 93, QT 414, QTC 441 Sinus rhythm without any ST segment elevations. There is some T-wave flattening and T-wave inversions in the anterior leads but this is unchanged from EKG on 05/10/2017. No signs of acute ischemia on this EKG. Attestation Statement - Attestation Attestation: I, Lucas Escobedo DO, examined this patient [id number] and my medical decision-making was reviewed with Olesya Serrano DO, Resident Physician. I agree with the documented findings, disposition and treatment plan as described except to the extent set forth below. Please see my progress notes for details.
--- NOTE | 2018-05-29 18:39 | Emergency Department Note ---
Disposition Clinical Impression: Elevated troponin UTI (urinary tract infection) Qualifiers: Urinary tract infection type: site unspecified Hematuria presence: without hematuria Qualified Code(s): N39.0 - Urinary tract infection, site not specified Altered mental status Qualifiers: Altered mental status type: unspecified Qualified Code(s): R41.82 - Altered mental status, unspecified Dementia Qualifiers: Dementia type: unspecified type Dementia behavioral disturbance: without behavioral disturbance Qualified Code(s): F03.90 - Unspecified dementia without behavioral disturbance Disposition: Admitted As Inpatient Condition: Fair Referrals: NONE,PCP [Primary Care Provider] - Time of Disposition: 22:12 General Adult HPI - General Chief complaint: ED General Medical Stated complaint: General illness Time Seen by Provider: 05/29/18 18:13 Source: EMS Mode of arrival: EMS Limitations: altered mental status - History of Present Illness Pain Scale: 0 - Related Data Home Medications Medication Instructions Recorded Confirmed Sertraline HCl [Zoloft] 12.5 mg PO QAM 10/06/14 05/29/18 Pantoprazole Sodium [Protonix] 40 mg PO QAM 12/14/14 05/29/18 Furosemide [Lasix] 20 mg PO DAILY 02/23/16 05/29/18 carBAMazepine [CarBAMazepine] 15 ml PO BID 02/24/16 05/29/18 Aspirin [Lo-Dose Aspirin EC] 81 mg PO DAILY 05/10/17 05/29/18 Cholecalciferol (D-3) [Vitamin D] 1,000 unit PO BID 05/10/17 05/29/18 Atorvastatin [Lipitor] 10 mg PO HS 05/29/18 05/29/18 Previous Rx's Medication Instructions Recorded LevETIRAcetam [Keppra] 7.5 ml PO Q12H #500 ml 02/27/16 Allergies Allergy/AdvReac Type Severity Reaction Status Date / Time Iodinated Contrast- Oral and Allergy Severe Hypotension Verified 11/13/17 15:08 IV Dye dexamethasone AdvReac Mild Itching Verified 11/13/17 15:08 nitrofurantoin AdvReac Mild Itching Verified 11/13/17 15:08 Sulfa (Sulfonamide AdvReac Mild Itching Verified 11/13/17 15:08 Antibiotics) tobramycin AdvReac Mild Itching Verified 11/13/17 15:08 clarithromycin AdvReac Unknown Itching Verified 11/13/17 15:08 Past Medical History - Past Medical History Medical history: Reports: arthritis, atrial fibrillation, cancer, CHF, COPD, coronary artery disease, CVA, dementia, dialysis, GERD, GI bleed, hyperlipidemia, hypertension, malignancy, myocardial infarction, osteoporosis, renal disease, seizures, SVT, thyroid disease, syncope, TIA, other Surgical history: Reports: angioplasty/stent, breast surgery, cancer surgery, pacemaker/AICD, thyroidectomy, other, AICD, pacemaker Psychiatric history: Reports: anxiety, depression, other IMPRESS ASSOCIATE history: Reports: no IMPRESS ASSOCIATE history, non-contributory - Social History Smoking Status: Never smoker Smokeless Tobacco Status: No Alcohol use: Reports: none Drug use: Reports: none Physical Exam - General Limitations: altered mental status General appearance: alert, in no apparent distress Course Vital Signs Temperature 98.3 F 05/29/18 18:12 Pulse Rate 69 05/29/18 18:12 Respiratory Rate 16 05/29/18 18:12 Blood Pressure 162/75 05/29/18 18:12 O2 Sat by Pulse Oximetry 99 05/29/18 18:12 Temperature 98.3 F 05/29/18 18:12 Pulse Rate 69 05/29/18 18:12 Respiratory Rate 16 05/29/18 18:12 Blood Pressure 162/75 05/29/18 18:12 O2 Sat by Pulse Oximetry 99 05/29/18 18:12 Oxygen Delivery Oxygen Delivery Room Air Medical Decision Making - Lab Data Result diagrams: 05/29/18 18:10 05/29/18 20:10 Lab Results 05/29/18 05/29/18 05/29/18 Range/Units 18:10 18:10 18:10 WBC 8.9 (4.3-11.1) K/mcL RBC 4.34 (3.82-4.97) M/mcL Hgb 14.0 (11.5-15.4) g/dL Hct 40.8 (35.3-44.9) % MCV 94.0 (83.0-100.0) fL MCH 32.3 (28.0-33.3) pg MCHC 34.3 (31.6-35.5) g/dL RDW 13.9 (11.5-14.5) % Plt Count 148 (140-400) K/mcL MPV 11.8 (9.4-12.4) fL Immature Gran % 0.6 (0-4) % Seg Neutrophils % 76.0 % Lymphocytes % 13.0 % Monocytes % 7.7 % Eosinophils % 2.4 % Basophils % 0.3 % Neutrophils # 6.8 (1.6-8.9) K/mcL Lymphocytes # 1.2 (0.6-4.6) K/mcL Monocytes # 0.7 (0.0-1.3) K/mcL Eosinophils # 0.2 (0.0-0.6) K/mcL Basophils # 0.0 (0.0-0.2) K/mcL Sodium Cancelled Potassium Cancelled Chloride Cancelled Carbon Dioxide Cancelled BUN Cancelled Creatinine Cancelled Est GFR ( Amer) Cancelled Est GFR (Non-Af Amer) Cancelled BUN/Creatinine Ratio Cancelled Glucose Cancelled Calculated Osmolality Cancelled Lactic Acid (0.5-2.2) mmol/L Calcium Cancelled Troponin I 0.04 H* (< 0.04) ng/mL Urine Color (Yellow) Urine Clarity (Clear) Urine pH (5.0-8.0) pH Units Ur Specific [place] (1.010-1.025) Urine Protein (Neg-Trace) mg/dL Urine Glucose (UA) (Normal) mg/dL Urine Ketones (Negative) mg/dL Urine Blood (Negative) Urine Nitrite (Negative) Urine Bilirubin (Negative) Urine Urobilinogen (Normal) mg/dL Ur Leukocyte Esterase (Negative) Urine Microscopic RBC (0-3) per hpf Urine Microscopic WBC (0-3) per hpf Ur Squamous Epith Cells (None-Few) per lpf Urine Bacteria (None-Few) per hpf Hyaline Casts (None-Few) per lpf Ur Culture Indicated? (NO) Specimen Rejected Hemolyzed 05/29/18 05/29/18 05/29/18 Range/Units 19:01 20:10 20:10 WBC (4.3-11.1) K/mcL RBC (3.82-4.97) M/mcL Hgb (11.5-15.4) g/dL Hct (35.3-44.9) % MCV (83.0-100.0) fL MCH (28.0-33.3) pg MCHC (31.6-35.5) g/dL RDW (11.5-14.5) % Plt Count (140-400) K/mcL MPV (9.4-12.4) fL Immature Gran % (0-4) % Seg Neutrophils % % Lymphocytes % % Monocytes % % Eosinophils % % Basophils % % Neutrophils # (1.6-8.9) K/mcL Lymphocytes # (0.6-4.6) K/mcL Monocytes # (0.0-1.3) K/mcL Eosinophils # (0.0-0.6) K/mcL Basophils # (0.0-0.2) K/mcL Sodium 138 Potassium 4.2 Chloride 99 Carbon Dioxide 31 H BUN 12 Creatinine 0.71 Est GFR ( Amer) > 60 Est GFR (Non-Af Amer) > 60 BUN/Creatinine Ratio 17 Glucose 105 Calculated Osmolality 286 Lactic Acid 2.1 (0.5-2.2) mmol/L Calcium 9.4 Troponin I (< 0.04) ng/mL Urine Color Dark Yellow (Yellow) Urine Clarity Turbid A (Clear) Urine pH 7.5 (5.0-8.0) pH Units Ur Specific [place] 1.016 (1.010-1.025) Urine Protein 30 H (Neg-Trace) mg/dL Urine Glucose (UA) Normal (Normal) mg/dL Urine Ketones Negative (Negative) mg/dL Urine Blood Negative (Negative) Urine Nitrite Positive A (Negative) Urine Bilirubin Negative (Negative) Urine Urobilinogen Normal (Normal) mg/dL Ur Leukocyte Esterase Large H (Negative) Urine Microscopic RBC 3-5 H (0-3) per hpf Urine Microscopic WBC TNTC H (0-3) per hpf Ur Squamous Epith Cells Many H (None-Few) per lpf Urine Bacteria Many H (None-Few) per hpf Hyaline Casts None Seen (None-Few) per lpf Ur Culture Indicated? NO. A (NO) Specimen Rejected Attestation Statement - Attestation Attestation: I, Lucas Escobedo DO, examined this patient [id number] and my medical decision-making was reviewed with Olesya Serrano DO, Resident Physician. I agree with the documented findings, disposition and treatment plan as described except to the extent set forth below. Please see my progress notes for details. 78-year-old female presents from home for evaluation of altered mentation and unresponsive presentation according the family. Patient is not escorted by family at this time. EMS is providing all the information. On arrival to the home, the patient was awake and conversing with family. No other acute symptoms or issues noted at this point. Patient's vital signs are stable during transport and Accu-Chek was confirmed a greater than 100 times to different collections. On arrival here, the patient is alert and speaking. She denies any symptoms at this time. Currently denying chest pain shortness of breath headache or vision change. She does have baseline dementia. She denies any fevers or chills. Again all of these responses are in question secondary to the dementia. Patient is otherwise in no distress. Oropharynx is patent trachea is midline. Lungs are clear heart is regular. Abdomen is soft with no guarding no rigidity. Pelvis is stable. Right lower extremity has bruising to the lateral malleolus with good reproducible pulses. Bilateral DP and PT pulses are symmetrical. Upper extremities are uninvolved and radial pulses are symmetrical. Patient will have altered mentation workup started this time including CT the head CBC chemistry urinalysis along with chest x-ray. Imaging of the right ankle will be completed as well. Disposition to be determined once full workup and treatment course have been established. See detailed documentation of the physical exam, medical intervention, medical decision-making and disposition in the resident physician's note. No critical care applied to the patient's treatment course at this time. 2200 Patient was discussed with the hospitalist Dr. Armstrong. Patient is going to be admitted at this time for urinary tract infection as well as an elevated troponin. The patient has not described any chest pain while here in the emergency department. Aspirin has been given as well as Rocephin. Patient's lactic acid is normal and blood cultures have been drawn. At this point, the patient is otherwise clinically stable and in no distress. She is at baseline mentation. Patient will be admitted for symptomatic control and continuation of care. Patient will be monitored here in the emergency department until the admission process is completed.
[2018-05-29 19:11] LABS: Bilirubin,Urine Negative (Negative); Blood,Urine Negative (Negative); Clarity,Urine Turbid (Clear); Color,Urine Dark Yellow (Yellow); Glucose,Urine (UA) Normal (Normal); Ketones,Urine Negative (Negative); Leukocyte Esterase,Urine Large (Negative); Nitrite,Urine Positive (Negative); PH,Urine 7.5 pH Units (5.0-8.0); Protein,Urine 30 mg/dL (Neg-Trace); Specific Gravity,Urine 1.016 (1.010-1.025); Urobilinogen,Urine Normal (Normal)
[2018-05-29 19:13] LABS: Bacteria,Urine Many per hpf (None-Few); Squamous Epithelial Cell,Urine Many per lpf (None-Few); WBC,Urine TNTC per hpf (0-3)
[2018-05-29 19:27] LABS: Hyaline Casts,Urine None Seen per lpf (None-Few)
[2018-05-29 19:30] LABS: Basophils % 0.3 %; Eosinophils # 0.2 K/mcL (0.0-0.6); Eosinophils % 2.4 %; Hematocrit 40.8 % (35.3-44.9); Immature Granulocytes % 0.6 % (0-4); Lymphocytes # 1.2 K/mcL (0.6-4.6); Mean Corpuscular HGB Conc 34.3 g/dL (31.6-35.5); Mean Corpuscular Hemoglobin 32.3 pg (28.0-33.3); Mean Platelet Volume 11.8 fL (9.4-12.4); Monocytes # 0.7 K/mcL (0.0-1.3); Monocytes % 7.7 %; Neutrophils # 6.8 K/mcL (1.6-8.9); Platelet Count 148 K/mcL (140-400); Red Blood Count 4.34 M/mcL (3.82-4.97); Red Cell Distribution Width 13.9 % (11.5-14.5)
[2018-05-29] MEDS ORDERED: cefTRIAXone 1,000 MG in 0.9 % Sodium Chloride Mini Bag 100 ML IVPB ONE (19:37)
[2018-05-29] MEDS ORDERED: Aspirin Enteric Coated 81 MG Tablet PO SCH (19:45)
[2018-05-29 20:40] LABS: BUN/Creatinine Ratio 17 (6-26); Blood Urea Nitrogen 12 mg/dL (8-23); Calcium 9.4 mg/dL (8.6-10.3); Carbon Dioxide 31 mEq/L (23-29); Chloride 99 mEq/L (98-107); Glucose 105 mg/dL (70-105); Osmolality,Calculated 286 (280-300); Potassium 4.2 mEq/L (3.5-5.1); Sodium 138 mEq/L (136-145); eGFR For Non-African Americans > 60 (> 60)
[2018-05-29] MEDS ORDERED: 0.9 % Sodium Chloride 1,000 ML IVC SCH (22:15)
[2018-05-30] MEDS ORDERED: Naloxone 0.4 MG/ML INJ IVP PRN (00:06)
--- NOTE | 2018-05-30 02:06 | Internal Med History&Physical ---
Date of Encounter: 05/30/18 Time of Encounter: 01:57 Internal Medicine - H&P: HPI Chief complaint: Altered mental status History of present illness: Ms. Serrano is a 78 year old female with a past medical history of a failed, CHF, COPD, coronary artery disease, CVA, seizures, dementia and history of UTI with ESBL organisms who presented to the ED today with change in mentation. Patient is a poor historian and much of the history was obtained from ED and previous records. Per report EMS was contacted after was a difficult to arouse by family members. Blood glucose was found to be 160 after EMS arrived. Patient was found to be awake and alert since then. CT scan of the head after arrival to the ED was unremarkable. Patient was otherwise afebrile and hemodynamically stable. Laboratory workup was relatively unremarkable aside from a mildly elevated troponin of 0.04. UA was suggestive of possible UTI. Patient was noted to have swelling of the right ankle with ecchymosis of the overlying skin. X-ray of the foot was performed which was negative for any fractures. Chest x- ray unremarkable. EKG was performed which showed nonspecific EKG changes. Past Med Surg Social Fam HX - Past Medical History Medical history: arthritis, atrial fibrillation, cancer, CHF, COPD, coronary artery disease, CVA, dementia, dialysis, GERD, GI bleed, hyperlipidemia, hypertension, malignancy, myocardial infarction, osteoporosis, renal disease, seizures, SVT, thyroid disease, syncope, TIA, other Additional medical history: nontoxic nodular goiter iron deficien cy. hyponatremia. bradycardia. sick sinus syndrome. anemia Psychiatric history: anxiety, depression, other - Past Surgical History Surgical History: angioplasty/stent, breast surgery, cancer surgery, pacemaker/AICD, thyroidectomy, other, AICD, pacemaker Additional surgical history: D AND C. HYSTEROSCOPY. THYROIDECTOMY - Social History Smoking Status: Never smoker Smokeless Tobacco Status: No Alcohol use: none Drug use: none - Family History Mother Living Status: Hx Family Endocrine Disorder: Yes Father Living Status: Hx Family Cancer: Yes Internal Medicine - H&P: Meds Sertraline HCl [Zoloft] 12.5 mg PO QAM 10/06/14 [History] Pantoprazole Sodium [Protonix] 40 mg PO QAM 12/14/14 [History] Furosemide [Lasix] 20 mg PO DAILY 02/23/16 [History] carBAMazepine [CarBAMazepine] 15 ml PO BID 02/24/16 [History] LevETIRAcetam [Keppra] 7.5 ml PO Q12H #500 ml 02/27/16 [Rx] Aspirin [Lo-Dose Aspirin EC] 81 mg PO DAILY 05/10/17 [History] Cholecalciferol (D-3) [Vitamin D] 1,000 unit PO BID 05/10/17 [History] Atorvastatin [Lipitor] 10 mg PO HS 05/29/18 [History] Allergy/AdvReac Type Severity Reaction Status Date / Time Iodinated Contrast- Oral and Allergy Severe Hypotension Verified 11/13/17 15:08 IV Dye dexamethasone AdvReac Mild Itching Verified 11/13/17 15:08 nitrofurantoin AdvReac Mild Itching Verified 11/13/17 15:08 Sulfa (Sulfonamide AdvReac Mild Itching Verified 11/13/17 15:08 Antibiotics) tobramycin AdvReac Mild Itching Verified 11/13/17 15:08 clarithromycin AdvReac Unknown Itching Verified 11/13/17 15:08 All Systems PM: A 10-system review of systems was performed and is negative for pertinent f indings except as documented above in the HPI. - Constitutional Constitutional: no chills, no fever(s), no night sweats - EENT Eyes: no change in vision, no discharge, no pain, no photophobia Ears: no ear discharge, no ear pain, no tinnitus Nose, mouth and throat: no dysphagia, no nasal discharge, no neck pain, no sore throat - Cardiovascular Cardiovascular ROS IM: no chest pain, no diaphoresis, no dyspnea, no lightheadedness, no palpitations, no syncope - Respiratory Respiratory: no cough, no dyspnea, no wheezing, no excessive phlegm production - Gastrointestinal Gastrointestinal: no abdominal pain, no diarrhea, no hematemesis, no hematochezia, no melena, no nausea, no vomiting - Genitourinary Genitourinary: no change in urinary stream, no dysuria, no flank pain, no hematuria - Musculoskeletal Musculoskeletal ROS IM: no numbness, no tingling - Integumentary Integumentary IM: no rash, no unusual bruising - Neurological Neurological ROS: no confusion, no convulsions, no focal weakness, no numbness, no tingling, no tremor(s) - Hematologic/Lymphatic Hematologic/Lymphatic: no easy bruising - Constitutional Vitals: Temp Pulse Resp BP Pulse Ox 98.2 F 67 18 147/74 98 05/29/18 23:42 05/29/18 23:42 05/29/18 23:42 05/29/18 23:42 05/29/18 23:42 Exam: General: Alert and oriented 1 Skin:Normal color, no rash, no lesions. HEENT:EOM, pupils equal, round and reactive. Cardiovascular:Normal S1 & S2, no rubs, murmurs or gallops. No JVD. Pulse regular. Lungs:Normal breath sounds, no wheezes or crackles. Abdomen:Soft, non-tender, no rigidity. Extremities: Ecchymosis and edema of the right ankle Neurological: Unable to perform a full neuro exam due to mentation Pulses:Carotid and radial pulses normal +2. Rest of the physical exam is non contributory Internal Med - H&P Results - Labs CBC & Chem 7: 05/29/18 18:10 05/30/18 07:00 Labs: Short CBC 05/29/18 Range/Units 18:10 WBC 8.9 (4.3-11.1) K/mcL Hgb 14.0 (11.5-15.4) g/dL Hct 40.8 (35.3-44.9) % Plt Count 148 (140-400) K/mcL Neutrophils # 6.8 (1.6-8.9) K/mcL BMP 05/29/18 05/29/18 18:10 20:10 Sodium Cancelled 138 Potassium Cancelled 4.2 Chloride Cancelled 99 Carbon Dioxide Cancelled 31 H BUN Cancelled 12 Creatinine Cancelled 0.71 Glucose Cancelled 105 Calcium Cancelled 9.4 Cardiac Enzymes 05/29/18 05/30/18 Range/Units 18:10 00:42 Troponin I 0.04 H* < 0.03 (< 0.04) ng/mL Urine 05/29/18 Range/Units 19:01 Urine Color Dark Yellow (Yellow) Urine Clarity Turbid A (Clear) Urine pH 7.5 (5.0-8.0) pH Units Ur Specific [place] 1.016 (1.010-1.025) Urine Protein 30 H (Neg-Trace) mg/dL Urine Glucose (UA) Normal (Normal) mg/dL - Impressions ITS Impressions Head CT 05/29/18 00:00 IMPRESSION: No acute intracranial abnormality. No change from prior exam. Symmetric large encephalomalacia of bilateral temporal lobes. Encephalomalacia of the inferior bilateral frontal lobes. Severe chronic microvascular ischemic changes in bilateral periventricular white matter distribution. Severe cortical atrophy. D/ / Dee Hermosillo MD / Dee Hermosillo MD Interpreting Provider: Dee Hermosillo MD Chest X-Ray 05/29/18 18:10 IMPRESSION: No acute process. D/ / Evette Sorensen MD / Evette Sorensen MD Interpreting Provider: Evette Sorensen MD Foot X-Ray 05/29/18 18:16 IMPRESSION: No acute osseous abnormality. Possible small linear subcutaneous foreign object at level of talonavicular joint visible on lateral view. D/ / Vinny Guerrero MD / Vinny Guerrero MD Interpreting Provider: Vinny Guerrero MD - Assessment and Plan (1) Altered mental status Current Visit: Yes Status: Acute Assessment and plan: Patient presents with altered mental status possibly secondary to UTI. Patient currently awake and alert 1. No patient was at bedside to confirm patient's baseline mental status. No Focal deficits appreciated. Patient does have a history of lung cancer in remission. If symptoms do not improve with antibiotics consider MRI of the brain to assess for metastatic lesions. -We will continue treatment for UTI. -Continue maintenance fluids. Qualifiers: Altered mental status type: unspecified Qualified Code(s): R41.82 - Altered mental status, unspecified (2) Elevated troponin Current Visit: Yes Status: Acute Assessment and plan: Elevated troponin of 0.04. No reports of chest pain. EKG unchanged from previous EKG. Possibly demand ischemia in the setting of UTI. Low suspicion for ACS. Patient received loading dose of aspirin -We will trend troponin -We will obtain echocardiogram (3) Urinary tract infection Current Visit: Yes Status: Acute Assessment and plan: UA positive for nitrites and leukocyte esterase. Previous culture showed pansensitivity to most antibiotics. No evidence of sepsis -Continue with Rocephin -Follow-up urine and blood culture. Qualifiers: Urinary tract infection type: site unspecified Hematuria presence: without hematuria Qualified Code(s): N39.0 - Urinary tract infection, site not specified (4) Dementia Current Visit: Yes Status: Chronic Assessment and plan: Resume home medications Qualifiers: Dementia type: unspecified type Dementia behavioral disturbance: without behavioral disturbance Qualified Code(s): F03.90 - Unspecified dementia without behavioral disturbance (5) Seizures Current Visit: Yes Status: Acute Assessment and plan: Continue patient's home antiepileptic medications. (6) DVT prophylaxis Current Visit: No Status: Acute Assessment and plan: Subcutaneous heparin - Time Spent With Patient Total time spent is greater than 50% in coordination of care (as documented) at patient's floor/unit and/or counseling patient:
[2018-05-30] MEDS: levETIRAcetam 500 MG/5 ML UDC PO SCH ×2 (02:09→13:16)
[2018-05-30 07:27] LABS: INR 1.1; Prothrombin Time 12.5 Seconds (9.4-12.1)
[2018-05-30 07:36] LABS: Alanine Aminotransferase 19 Units/L (7-52); Albumin 3.4 g/dL (3.5-5.7); Albumin/Globulin Ratio 1.4 (1.1-2.2); Alkaline Phosphatase 73 Units/L (34-104); Aspartate Amino Transferase 19 Units/L (13-39); BUN/Creatinine Ratio 15 (6-26); Bilirubin,Total 0.5 mg/dL (0.3-1.0); Blood Urea Nitrogen 10 mg/dL (8-23); Calcium 8.8 mg/dL (8.6-10.3); Carbon Dioxide 27 mEq/L (23-29); Chloride 103 mEq/L (98-107); Globulin 2.4 g/dL (2.4-3.5); Glucose 108 mg/dL (70-105); Osmolality,Calculated 288 (280-300); Potassium 3.7 mEq/L (3.5-5.1); Sodium 139 mEq/L (136-145); Total Protein 5.8 g/dL (6.4-8.9); eGFR For Non-African Americans > 60 (> 60)
[2018-05-30 08:37] LABS: Basophils # 0.1 K/mcL (0.0-0.2); Basophils % 0.5 %; Eosinophils # 0.3 K/mcL (0.0-0.6); Eosinophils % 2.5 %; Hematocrit 39.5 % (35.3-44.9); Hemoglobin 13.8 g/dL (11.5-15.4); Immature Granulocytes % 1.2 % (0-4); Immature Platelets 7.1 % (1.1-6.1); Lymphocytes # 2.1 K/mcL (0.6-4.6); Lymphocytes % 20.9 %; Mean Corpuscular HGB Conc 34.9 g/dL (31.6-35.5); Mean Corpuscular Hemoglobin 31.4 pg (28.0-33.3); Mean Corpuscular Volume 89.8 fL (83.0-100.0); Mean Platelet Volume 11.9 fL (9.4-12.4); Monocytes % 9.5 %; Platelet Count 123 K/mcL (140-400); Red Cell Distribution Width 13.7 % (11.5-14.5); Segmented Neutrophils % 65.4 %
[2018-05-30] MEDS: Cholecalciferol (D-3) 1,000 UNIT TABLET PO SCH ×2 (08:58→20:09)
[2018-05-30] MEDS: Furosemide 20 MG TABLET PO SCH (08:58)
[2018-05-30] MEDS: Aspirin Enteric Coated 81 MG Tablet PO SCH (08:58)
[2018-05-30 09:03] LABS: Neutrophils # 6.5 K/mcL (1.6-8.9)
--- NOTE | 2018-05-30 11:06 | Event Note ---
Date of Encounter: 05/30/18 Time of Encounter: 08:45 H&P reviewed. Patient with history of dementia, COPD, CHF, CAD, is admitted for metabolic encephalopathy likely due to UTI. Started on Rocephin and remains afebrile. For PT/OT/SW for possible placement while UTI is being treated. Noted initial minimal elevation of troponin of 0.04 which has since then been normal x2. EKG without any concerning changes and will just verify with echocardiogram regarding cardiac function.
[2018-05-30] MEDS: cefTRIAXone 1,000 MG in Water for inj. (sterile) 20 ML 10 ML IVP SCH (11:10)
[2018-05-30] MEDS: *HR* Heparin 5,000 UNIT/ML VIAL SQ SCH (18:48)
[2018-05-31] MEDS: levETIRAcetam 500 MG/5 ML UDC PO SCH ×2 (00:57→14:05)
[2018-05-31] MEDS: *HR* Heparin 5,000 UNIT/ML VIAL SQ SCH ×2 (05:31→18:17)
[2018-05-31] MEDS: Cholecalciferol (D-3) 1,000 UNIT TABLET PO SCH ×2 (08:15→20:00)
[2018-05-31] MEDS: Aspirin Enteric Coated 81 MG Tablet PO SCH (08:15)
[2018-05-31] MEDS: Furosemide 20 MG TABLET PO SCH (08:16)
--- NOTE | 2018-05-31 11:30 | Internal Med Progress Note ---
Hospitalist Progress Note - Encounter Date of Encounter: 05/31/18 Time of Encounter: 11:29 - Subjective Interval History: I have seen an evaluated the patient at bedside. Patient alert only to person, in no visual distress. per at bedside patient is more somnolent and is not at her baseline. - Exam Vitals: Temp Pulse Resp BP Pulse Ox 98.7 F 67 17 130/81 96 05/31/18 10:50 05/31/18 10:50 05/31/18 10:50 05/31/18 10:50 05/31/18 10:50 Exam: Vitals: Reviewed General: Awake, oriented only to person, not time or place Skin: Normal color, no rash, no lesions. HEENT: EOM, pupils equal, round and reactive. Cardiovascular: RRR, normal S1 & S2, no rubs, murmurs or gallops. Lungs: CTA b/l, no wheezes or crackles. Abdomen: Soft, non-tender, no rigidity. Extremities: No deformity, no edema. Neurological: not following commands Rest of the physical exam is non contributory - Assessment and Plan (1) Altered mental status Current Visit: Yes Status: Acute Assessment and Plan: patient awake, somnolent, protecting her airways. change in mental status possibly due to UTI. patient is on ceftriaxone 1gm/IV daily will repeat UA to see if culture is indicated this time. Patient has a Hx of ESBL UTI. fall and aspiration precautions. (2) Dementia Current Visit: Yes Status: Chronic Assessment and Plan: with worsening mental status due to uti. continue IV antibiotics. (3) Urinary tract infection Current Visit: Yes Status: Acute Assessment and Plan: plan of care as per problem #1 (4) Elevated troponin Current Visit: Yes Status: Ruled-out (5) Seizures Current Visit: Yes Status: Acute Assessment and Plan: patient is on levetiracetam 750mg/PO Q12HR. and carbamazepine 300mg/PO BID. (6) HLD (hyperlipidemia) Current Visit: Yes Status: Chronic Assessment and Plan: continue atorvastatin 10mg/PO daily (7) HTN (hypertension) Current Visit: Yes Status: Chronic Assessment and Plan: BP is controlled on furosemide 20mg/PO daily DVT Prophylaxis: On heparin subq. - Summary of Assessment and Plan Summary of Assessment and Plan: Patient to remain in the hospital due to encephalopaty due to UTI on IV antibiotics. - Time Spent with Patient Total time spent is greater than 50% in coordination of care (as documented) at patient's floor/unit and/or counseling patient: Internal Medicine: Result - Labs CBC & Chem 7: 05/30/18 07:47 05/30/18 07:00 - ABG Interpretation ABG results: PT/INR, D-dimer PT 12.5 Seconds (9.4-12.1) H 05/30/18 07:00 - Impressions Impressions Echocardiogram 05/30/18 02:11 Impressions: LVEF 65%. Mild left ventricular diastolic dysfunction. Mild concentric left ventricular hypertrophy. Normal right ventricular size and function. Mild mitral regurgitation. Mild tricuspid regurgitation. Mild pulmonic regurgitation. No pulmonary hypertension. Left Ventricular Wall Motion: Rest Echo Findings All wall segments showed normal motion. Findings: Study Quality * Technically adequate exam. ECG Findings * Normal sinus rhythm. Left Ventricle * LVEF 65%. * Mild left ventricular diastolic dysfunction. * Mild concentric left ventricular hypertrophy. Right Ventricle * Normal right ventricular size and function. Left Atrium * Mildly dilated left atrium. Right Atrium * Normal right atrial size. Aortic Valve * No aortic regurgitation. * Aortic valve not well visualized. * No aortic stenosis. Mitral Valve * No mitral stenosis. * Mild mitral regurgitation. * Normal mitral valve structure. Tricuspid Valve * Tricuspid valve not well visualized. * Mild tricuspid regurgitation. Pulmonic Valve * Pulmonic valve is not well visualized. * No pulmonic stenosis. * Mild pulmonic regurgitation. Pulmonary Artery * Pulmonary artery not well visualized. Aorta * Normally sized aortic root. Pericardium * There is no pericardial effusion present. Interatrial Septum * No evidence of PFO by color Doppler. IVC * The IVC is not well evaluated. Consult Discharge Plan - Plan Referrals: Dayton Cunningham DO [Partnered Physician] - 06/05/18 11:00 am (Please follow up as schedule...) _ (1) Altered mental status Qualifiers: Altered mental status type: somnolence Qualified Code(s): R40.0 - Somnolence (2) Dementia Qualifiers: Dementia type: unspecified type Dementia behavioral disturbance: without behavioral disturbance Qualified Code(s): F03.90 - Unspecified dementia without behavioral disturbance (3) Urinary tract infection Qualifiers: Urinary tract infection type: site unspecified Hematuria presence: without hematuria Qualified Code(s): N39.0 - Urinary tract infection, site not specified (6) HLD (hyperlipidemia) Qualifiers: Hyperlipidemia type: unspecified Qualified Code(s): E78.5 - Hyperlipidemia, unspecified (7) HTN (hypertension) Qualifiers: Hypertension type: unspecified Qualified Code(s): I10 - Essential (primary) hypertension
[2018-05-31 11:58] LABS: Bilirubin,Urine Negative (Negative); Blood,Urine Negative (Negative); Clarity,Urine Clear (Clear); Color,Urine Yellow (Yellow); Glucose,Urine (UA) Normal (Normal); Ketones,Urine Negative (Negative); Leukocyte Esterase,Urine Moderate (Negative); Nitrite,Urine Negative (Negative); Protein,Urine Negative (Neg-Trace); Urobilinogen,Urine Normal (Normal)
[2018-05-31 12:00] LABS: Bacteria,Urine None Seen per hpf (None-Few); Hyaline Casts,Urine None Seen per lpf (None-Few); RBC,Urine 0-3 per hpf (0-3); Squamous Epithelial Cell,Urine Few per lpf (None-Few)
[2018-05-31] MEDS ORDERED: levoFLOXacin 750 MG TABLET PO ONE (12:52)
[2018-05-31] MEDS: cefTRIAXone 1,000 MG in Water for inj. (sterile) 20 ML 10 ML IVP SCH (13:08)
--- NOTE | 2018-05-31 14:21 | Electrocardiograph Report ---
[address] [place], [place] [address] Test Date: 2018-05-29 Pat Name: Geeta Serrano Department: [id number] Room: 2A31 Gender: F [employer]: : 1940 Requested By: Olesya Serrano Order Number: [id number] Reading MD: Suzanne Tello Measurements Intervals [place] Rate: 68 P: 58 GA: 176 QRS: -14 QRSD: 93 T: 140 QT: 414 QTc: 441 Interpretive Statements Sinus rhythm Abnormal R-wave progression, early transition Abnrm T, consider ischemia, anterolateral lds Electronically Signed On 05-31-2018 14:19:59 EDT by Suzanne Tello
[2018-06-01] MEDS: levETIRAcetam 500 MG/5 ML UDC PO SCH ×2 (01:12→13:15)
[2018-06-01] MEDS: *HR* Heparin 5,000 UNIT/ML VIAL SQ SCH ×2 (05:10→17:40)
[2018-06-01 06:29] LABS: Basophils % 0.4 %; Eosinophils # 0.1 K/mcL (0.0-0.6); Eosinophils % 1.4 %; Hematocrit 38.1 % (35.3-44.9); Hemoglobin 13.1 g/dL (11.5-15.4); Immature Granulocytes % 0.5 % (0-4); Immature Platelets 5.9 % (1.1-6.1); Lymphocytes # 1.8 K/mcL (0.6-4.6); Lymphocytes % 22.1 %; Mean Corpuscular HGB Conc 34.4 g/dL (31.6-35.5); Mean Corpuscular Hemoglobin 31.6 pg (28.0-33.3); Mean Platelet Volume 11.7 fL (9.4-12.4); Monocytes # 0.7 K/mcL (0.0-1.3); Monocytes % 8.2 %; Neutrophils # 5.3 K/mcL (1.6-8.9); Nucleated Red Blood Cells 0.3 /100 WBC (0); Platelet Count 117 K/mcL (140-400); Red Blood Count 4.14 M/mcL (3.82-4.97); Red Cell Distribution Width 13.5 % (11.5-14.5); Segmented Neutrophils % 67.4 %
[2018-06-01 06:41] LABS: BUN/Creatinine Ratio 18 (6-26); Blood Urea Nitrogen 12 mg/dL (8-23); Calcium 8.7 mg/dL (8.6-10.3); Carbon Dioxide 25 mEq/L (23-29); Chloride 104 mEq/L (98-107); Glucose 98 mg/dL (70-105); Osmolality,Calculated 284 (280-300); Phosphorous 3.1 mg/dL (2.7-4.5); Potassium 3.4 mEq/L (3.5-5.1); Sodium 137 mEq/L (136-145); eGFR For Non-African Americans > 60 (> 60)
[2018-06-01] MEDS: Aspirin Enteric Coated 81 MG Tablet PO SCH (09:38)
[2018-06-01] MEDS: Furosemide 20 MG TABLET PO SCH (09:38)
[2018-06-01] MEDS: Cholecalciferol (D-3) 1,000 UNIT TABLET PO SCH ×2 (09:38→19:39)
[2018-06-01] MEDS: Potassium Chloride Elixir 20 MEQ/15 ML UDC PO SCH ×2 (10:02→19:38)
[2018-06-01] MEDS: cefTRIAXone 1,000 MG in Water for inj. (sterile) 20 ML 10 ML IVP SCH (13:15)
--- NOTE | 2018-06-01 23:03 | Internal Med Progress Note ---
Hospitalist Progress Note - Encounter Date of Encounter: 06/01/18 Time of Encounter: 19:00 - Subjective Interval History: SUBJECTIVE: The patient is a very old and very demented 78-year-old woman. Admitted with altered mental status, likely due to urinary tract infection. I met her next to her bed. He tells me that her mental status is nearly baseline. She was accepting breakfast and lunch todaywas fed by him. The patient has been bedbound for years. She is not showing any distress. OBJECTIVE: Skin: Free of rash and discoloration. ENMT: Oral/pharyngeal mucosa is normal in appearance. Eyes: Sclera is white. There is no discharge from eyes. Respiratory: Normal breath sounds; no crackles or wheezes. CV: Heart is regular; no gallop or murmur. GI: Abdomen is soft and not tender. There is no palpable mass or visceromegaly. ADDITIONAL DATA: Hemoglobin is 13.0 with normal WBC and platelet count. Potassium is 3.4. The rest of electrolytes is normal. Creatinine is 0.67. Repeat his UA from yesterday does not show UTI-like changes anymore. Blood cultures and urine culture from 05/29 are not growing any organisms. ASSESSMENT AND PLAN: Altered mental status, likely secondary to UTI. Definitely better after giving her IV fluids. She gets Rocephin. She has severe dementia. Stable at this time. Very mildly elevated troponin. She does not look like she has ACS. Not a candidate for any cardiology interventions. History of seizure. She is on carbamazepine. DISPOSITION: The patient may be discharged home tomorrow afternoonif she remains stable. I will substitute her IV Rocephin with oral Omnicef. - Exam Vitals: Temp Pulse Resp BP Pulse Ox 99.0 F 76 18 145/91 96 06/01/18 19:48 06/01/18 19:48 06/01/18 19:48 06/01/18 19:48 06/01/18 19:48 Exam: xx - Assessment and Plan (1) Altered mental status Current Visit: Yes Status: Acute (2) Urinary tract infection Current Visit: Yes Status: Acute (3) Dementia Current Visit: Yes Status: Chronic (4) Elevated troponin Current Visit: Yes Status: Ruled-out (5) Seizures Current Visit: Yes Status: Acute (6) HTN (hypertension) Current Visit: Yes Status: Chronic (7) HLD (hyperlipidemia) Current Visit: Yes Status: Chronic - Time Spent with Patient Total time spent is greater than 50% in coordination of care (as documented) at patient's floor/unit and/or counseling patient: 25 - 35 minutes Plan of Care Discussed with: patient (and family) Internal Medicine: Result - Labs CBC & Chem 7: 06/01/18 05:49 06/01/18 05:49 Labs: Short CBC 06/01/18 Range/Units 05:49 WBC 7.9 (4.3-11.1) K/mcL Hgb 13.1 (11.5-15.4) g/dL Hct 38.1 (35.3-44.9) % Plt Count 117 L (140-400) K/mcL Neutrophils # 5.3 (1.6-8.9) K/mcL BMP 06/01/18 05:49 Sodium 137 Potassium 3.4 L Chloride 104 Carbon Dioxide 25 BUN 12 Creatinine 0.67 Glucose 98 Calcium 8.7 - ABG Interpretation ABG results: PT/INR, D-dimer PT 12.5 Seconds (9.4-12.1) H 05/30/18 07:00 Consult Discharge Plan - Plan Referrals: Dayton Cunningham DO [Partnered Physician] - 06/05/18 11:00 am (Please follow up as schedule...) (1) Altered mental status Qualifiers: Altered mental status type: somnolence Qualified Code(s): R40.0 - Somnolence (2) Urinary tract infection Qualifiers: Urinary tract infection type: site unspecified Hematuria presence: without hematuria Qualified Code(s): N39.0 - Urinary tract infection, site not specified (3) Dementia Qualifiers: Dementia type: unspecified type Dementia behavioral disturbance: without behavioral disturbance Qualified Code(s): F03.90 - Unspecified dementia without behavioral disturbance (6) HTN (hypertension) Qualifiers: Hypertension type: unspecified Qualified Code(s): I10 - Essential (primary) hypertension (7) HLD (hyperlipidemia) Qualifiers: Hyperlipidemia type: unspecified Qualified Code(s): E78.5 - Hyperlipidemia, unspecified
[2018-06-02] MEDS: levETIRAcetam 500 MG/5 ML UDC PO SCH ×2 (01:05→13:08)
[2018-06-02] MEDS: *HR* Heparin 5,000 UNIT/ML VIAL SQ SCH (05:03)
[2018-06-02] MEDS: Cholecalciferol (D-3) 1,000 UNIT TABLET PO SCH (09:22)
[2018-06-02] MEDS: cefTRIAXone 1,000 MG in Water for inj. (sterile) 20 ML 10 ML IVP SCH (09:23)
[2018-06-02] MEDS: Furosemide 20 MG TABLET PO SCH (09:23)
[2018-06-02] MEDS: Aspirin Enteric Coated 81 MG Tablet PO SCH (09:23)
[2018-06-02] MEDS: Potassium Chloride Elixir 20 MEQ/15 ML UDC PO SCH (09:26)
[2018-06-02 15:10] VITALS: BP 149/83
--- NOTE | 2018-06-02 16:05 | Discharge Summary ---
Orders not resulted at time of discharge: Pending orders 05/29/18 20:05 Culture,Blood [BC] Stat 05/31/18 11:45 Culture,Urine [RM] Stat Date of Encounter: 06/02/18 Time of Encounter: 11:00 - Discharge Diagnosis (1) Altered mental status Priority: Primary Status: Acute Qualifiers: Altered mental status type: somnolence Qualified Code(s): R40.0 - Somnolence (2) Urinary tract infection Priority: Primary Status: Acute Qualifiers: Urinary tract infection type: site unspecified Hematuria presence: without hematuria Qualified Code(s): N39.0 - Urinary tract infection, site not specified (3) Dementia Priority: Secondary Status: Chronic Qualifiers: Dementia type: unspecified type Dementia behavioral disturbance: without behavioral disturbance Qualified Code(s): F03.90 - Unspecified dementia without behavioral disturbance (4) Seizures Priority: Secondary Status: Chronic (5) HTN (hypertension) Priority: Secondary Status: Chronic Qualifiers: Hypertension type: unspecified Qualified Code(s): I10 - Essential (primary) hypertension (6) HLD (hyperlipidemia) Priority: Secondary Status: Chronic Qualifiers: Hyperlipidemia type: unspecified Qualified Code(s): E78.5 - Hyperlipidemia, unspecified (7) Elevated troponin Priority: Secondary Status: Resolved Hospital course: HOSPITAL COURSE: The patient is a 78-year-old woman. She has had severe dementia; has been bedbound for years. She was brought to us with altered mental status; stopped eating/taking fluids. She has severe dementia. We found her to have urinary tract infection with Enterococcus faecalis. The patient was initially on IV Rocephin; switched to oral Augmentin, when we learned about her infecting organism and its sensitivity. CONDITION AT DISCHARGE: According to her the patients a mental status is baseline. She responds to his voice. She verbalizes to him occasionally. She eats/drinks a fluidswhen fed by her . Skin: Free of rash and discoloration. Respiratory: Normal breath sounds with no crackles and wheezes bilaterally. CV: Heart is regular with no gallop or murmur. GI: Abdomen is flat and soft with no palpable mass or visceromegaly. SEE DISCHARGE ORDERS/MEDICATIONS She will be treated with Augmentin for the next 14 days. Discharge discussed with: patient, family - Time Spent with Patient Total time spent providing and/or coordinating discharge services: Time spent: Greater than 30 minutes (40 minutes...) - Discharge Medications Prescriptions: New Amoxicillin/Clavulanate [Augmentin] 875 mg PO BIDWM 14 Days #28 tablet Continue Pantoprazole Sodium [Protonix] 40 mg PO QAM carBAMazepine [CarBAMazepine] 15 ml PO BID LevETIRAcetam [Keppra] 7.5 ml PO Q12H #500 ml Aspirin [Lo-Dose Aspirin EC] 81 mg PO DAILY Cholecalciferol (D-3) [Vitamin D] 1,000 unit PO BID Atorvastatin [Lipitor] 10 mg PO HS Fluticasone Propionate Nasal [Flonase] 1 spray NS BID Sertraline [Zoloft] 12.5 mg PO DAILY Changed Furosemide [Lasix] 20 mg PO DAILY PRN #0 PRN Reason: Fluid Retention Home Medications: Pantoprazole Sodium [Protonix] 40 mg PO QAM 12/14/14 [History] carBAMazepine [CarBAMazepine] 15 ml PO BID 02/24/16 [History] LevETIRAcetam [Keppra] 7.5 ml PO Q12H #500 ml 02/27/16 [Rx] Aspirin [Lo-Dose Aspirin EC] 81 mg PO DAILY 05/10/17 [History] Cholecalciferol (D-3) [Vitamin D] 1,000 unit PO BID 05/10/17 [History] Atorvastatin [Lipitor] 10 mg PO HS 05/29/18 [History] Fluticasone Propionate Nasal [Flonase] 1 spray NS BID 05/31/18 [History] Sertraline [Zoloft] 12.5 mg PO DAILY 05/31/18 [History] Amoxicillin/Clavulanate [Augmentin] 875 mg PO BIDWM 14 Days #28 tablet 06/02/18 [Rx] Furosemide [Lasix] 20 mg PO DAILY PRN #0 06/02/18 [Rx] Allergies/Adverse Reactions: Allergy/AdvReac Type Severity Reaction Status Date / Time Iodinated Contrast- Oral and Allergy Severe Hypotension Verified 11/13/17 15:08 IV Dye dexamethasone AdvReac Mild Itching Verified 11/13/17 15:08 nitrofurantoin AdvReac Mild Itching Verified 11/13/17 15:08 Sulfa (Sulfonamide AdvReac Mild Itching Verified 11/13/17 15:08 Antibiotics) tobramycin AdvReac Mild Itching Verified 11/13/17 15:08 clarithromycin AdvReac Unknown Itching Verified 11/13/17 15:08 Date of admission: 05/29/18 22:22 Primary care physician: PCP NONE Consults: 05/29/18 23:29 Consult to Nutrition [CONS] Routine Comment: Consulting Provider: NUTRITION Reason for Dietary Consult: MST Score Consult to Medical Reception [CONS] Routine Reason for SW Consult: dementia, lives at home with family per ED 05/30/18 11:07 Consult to Physical Therapy [CONS] Routine Comment: Evaluate, develop and implement POC Reason for Consult: Advanced dementia, may need placement Does patient have active BEDREST order?: No Is patient medically & hemodynamically stable?: Yes Discharging clinician: Chaitanya Damon Anticipated date of discharge: 06/02/18 - Constitutional Vitals: Temp Pulse Resp BP Pulse Ox 98.2 F 67 17 149/83 92 06/02/18 15:09 06/02/18 15:09 06/02/18 15:09 06/02/18 15:09 06/02/18 15:09 General appearance: Present: A&O X 1, no acute distress Exam: xx - Patient Status Disposition: Home, Self-Care Condition: Fair Functional capacity at discharge: bed bound Overall status at discharge: patient is back to baseline - Discharge Instructions Follow Up With: Dayton Cunningham DO [Partnered Physician] - 06/05/18 11:00 am (Please follow up as schedule...) - Diet and Activity Activity: other (bed-bound...) Diet: regular diet (mechanical soft/grounded meat...)
== END 2018-06-02 17:48 | disposition home or self-care (01) ==
LOC: 2ANU 17:58 → EMEROOARM 17:58 → SUATTDRO 22:22 → 2ANU 23:06
PROVIDERS: ADMIT Internal Medicine; ATTEND Internal Medicine